=== PATIENT | female | born 1985 | race Caucasian/White ===

== ENCOUNTER 2021-05-27 13:11 | Outpatient (CLI) | payer MEDICARE, MEDICAID, SELFPAY ==
--- NOTE | ~2021-05-27 | XR_ITS ---
EXAMINATION: XR lumbar spine 2-3V EXAM DATE: 05/27/2021 13:32 INDICATION: Low back pain. TECHNIQUE: Lumber spine frontal, lateral, lateral L5-S1 projections for interpretation. Comparison is made to prior examination from 05/04/2015. FINDINGS: There is moderate disc disease at L5-S1, mild at the other lumbar levels with height maint ained. There is mild lumbar facet arthropathy. The vertebral bodies are aligned in the AP dimension. Sacrum, sacroiliac joints, sacral arcuate lines are intact. Paraspinal soft tissue is unremarkable. IMPRESSION: L5-S1 moderate disc disease. Otherwise mild lumbar spondylosis. Reviewed, dictated and finalized at location A. NICAL SALES DIRECTOR
== END 2021-05-27 13:12 | disposition home or self-care (01) ==
LOC: ANHLAB 13:15
PROVIDERS: PCP Nurse Practitioner Family; Visit Provider Internal Medicine
DX: M51.37 Other intervertebral disc degeneration, lumbosacral region (principal); M47.896 Other spondylosis, lumbar region
CPT/HCPCS: 72100

== ENCOUNTER 2021-10-22 13:01 | Outpatient (CLI) | payer OTHER, SELFPAY ==
--- NOTE | ~2021-10-22 | XR_ITS ---
EXAMINATION: XR lumbar spine 2-3V DATE: 10/22/2021 13:26 INDICATION: Low back pain. TECHNIQUE: 3 views of lumbar spine were obtained. COMPARISON: Lumbar spine radiographs 05/27/2021 FINDINGS: Bone alignment is normal. Vertebral body heights are normal. There is moderately decreased disc height at L5-S1. There are endplate osteophytes at most levels. There is multilevel mild facet j oint osteoarthritis. IMPRESSION: 1. Moderate lower lumbar spondylosis. Reviewed, dictated and finalized at location A.
== END 2021-10-22 13:02 | disposition home or self-care (01) ==
LOC: ANHIMG 13:09
DX: M47.896 Other spondylosis, lumbar region (principal)
CPT/HCPCS: 72100

== ENCOUNTER 2021-11-15 20:35 | Emergency (ER) | payer OTHER, SELFPAY ==
[2021-11-15 20:41] VITALS: BP 118/64; PULSE 109; RESP 20; TEMP 36.3; O2SAT 99
--- NOTE | 2021-11-15 21:08 | PC.NURSE ---
pt left at this time stating we'll just come back another time, I can't wait anymore and my daughter is getting antzy.
== END 2021-11-15 21:10 | disposition left against medical advice (07) ==
DX: R68.84 Jaw pain (principal)
CPT/HCPCS: 99199

== ENCOUNTER 2021-11-16 11:31 | Emergency (ER) | payer OTHER, SELFPAY ==
[2021-11-16 11:34] VITALS: BP 113/50; PULSE 104; RESP 16; TEMP 36.7; O2SAT 99
--- NOTE | 2021-11-16 12:40 | ED.DENTAL ---
HPI - Dental/Oral General Chief complaint: Dental/Oral <ALMITA Mazariegos Last Filed: 11/16/21 13:46> Stated complaint: dental pain <ALMITA Mazariegos Last Filed: 11/16/21 13:46> Time Seen by Provider: 11/16/21 11:45 <ALMITA Mazariegos Last Filed: 11/16/21 13:46> Source: patient <ALMITA Mazariegos Last Filed: 11/16/21 13:46> Mode of arrival: ambulatory <ALMITA Mazariegos Last Filed: 11/16/21 13:46> Limitations: no limitations <ALMITA Mazariegos Last Filed: 11/16/21 13:46> History of Present Illness HPI Narrative: This is a 36 year old female that presents to the ER for dental pain. Ongoing over the last week. Reports she recently had a tooth extracted in the area. Reports since she has had worsening pain and swelling in the area. She has also noted some abnormal drainage of the area the last 2 days. Denies fever. <ALMITA Mazariegos Last Filed: 11/16/21 13:46> MD Complaint: tooth pain <ALMITA Mazariegos Last Filed: 11/16/21 13:46> Location: Tooth # (31) <ALMITA Mazariegos Last Filed: 11/16/21 13:46> Related Data Home medications: Home Medications Medication Instructions Recorded Confirmed bupropion HCl mg PO 11/15/21 olanzapine mg 11/15/21 <ALMITA Mazariegos Last Filed: 11/16/21 13:46> Allergies/adverse reactions: Allergies Allergy/AdvReac Type Severity Reaction Status Date / Time No Known Allergies Allergy Verified 11/16/21 11:40 <ALMITA Mazariegos Last Filed: 11/16/21 13:46> Review of Systems Review of Systems: CONSTITUTIONAL: Denies fever ENT: Reports dentalgia RESPIRATORY: Denies dyspnea. <ALMITA Mazariegos Last Filed: 11/16/21 13:46> All systems reviewed & are unremarkable except as noted in HPI and below <Charisse Avalos PA-C - Last Filed: 11/16/21 13:46> [facility] Past Medical History Medical History: Medical History (Updated 11/16/21 @ 13:44 by Charisse Avalos PA-C) Allergies Anxiety Bipolar disorder Encounter to establish care Low back pain Tobacco abuse <Charisse vAalos PA-C - Last Filed: 11/16/21 13:46> Family History Family History: Family History (Updated 03/07/21 @ 13:41 by Rex Robles [facility]) Mother Family history of malignant neoplasm Lung cancer Grandparent Cervical cancer <Charisse Avalos PA-C - Last Filed: 11/16/21 13:46> Social History Social History: Social History (Updated 03/07/21 @ 13:41 by Rex Robles [facility]) Smoking packs per day: 1 Smoking cigarettes per day: 20.0 Years smoked: 18 Smoking pack-years: 18.00 Smoking status: Current every day smoker Tobacco type: cigarettes Alcohol intake: current Substance use: never <Charisse Avalos PA-C - Last Filed: 11/16/21 13:46> Exam Narrative: GENERAL: Well-appearing, well-nourished, and in no acute distress. HEAD: Normocephalic, atraumatic. EYES: EOMI. ENT: Mucous membranes moist. Oropharynx without tonsillar hypertrophy exudate or other lesions. Floor of mouth is soft. No trismus. Area of extraction of tooth #31 with edema and erythema NECK: Supple. Right submandibular tender adenopathy CHEST: Clear to auscultation. No respiratory distress. No wheezes rales or rhonchi HEART: Regular rate and rhythm. No murmur heard. Normal peripheral pulses. EXTREMITIES: Normal range of motion. No edema. SKIN: Warm, dry, no rash. NEURO: No focal deficits. Alert and oriented x3. PSYCH: Normal mood and affect <Charisse Avalos PA-C - Last Filed: 11/16/21 13:46> Course [employer] SALES REPRESENTATIVE/PA Physician Supervision For this patient encounter, I reviewed the ELECT[employer] SALES REPRESENTATIVE or PA documentation, treatment plan, and medical decision making; and I had [id number] time with this patient. <Ignacio De Santiago MD - Last Filed: 11/16/21 15:58> Vital Signs Vital signs: Vital Signs Temperature 98.0 F 11/16/21 11:34 Pulse Rate 104 H 11/16/21 11:34 Respiratory R
[2021-11-16] MEDS: AMPICILLIN SULB 3 GM/NS 100 ML 3 GM/100 ML VIAL IVPB (12:41)
[2021-11-16 13:01] LABS: Basophils Percent Auto 0.3 % (0.2-1.2); Eosinophils Absolute Auto 0.1 K/mm3 (0-0.3); Eosinophils Percent Auto 1.3 % (0-4.4); Hemoglobin 12.4 g/dL (12.0-15.0); Immature Granulocyte Absolute 0.02 K/mm3 (0.00-0.031); Immature Granulocyte Percent A 0.3 % (0-0.5); Lymphocytes Absolute Auto 1.85 K/mm3 (0.9-3.2); Lymphocytes Percent Auto 23.7 % (18.3-44.2); Mean Corpuscular HGB Conc 33.5 g/dl (32-36); Mean Corpuscular Hemoglobin 32.5 pg (26-34); Mean Corpuscular Volume 97.1 fl (80-100); Mean Platelet Volume 10.8 fl (7.4-10.4); Monocytes Absolute Auto 0.5 K/mm3 (0.1-0.6); Monocytes Percent Auto 6.3 % (2.6-8.5); Neutrophils Absolute Auto 5.3 K/mm3 (1.3-6.7); Neutrophils Percent Auto 68.1 % (45.5-73.1); Platelet Count Result 264 k/mm3 (150-375); Red Blood Count 3.81 M/mm3 (4.2-5.4); Red Cell Distribution Width 12.2 % (11.5-14.5); White Blood Count 7.8 K/mm3 (4.5-10.0)
[2021-11-16 13:14] LABS: Anion Gap 5 mmol/L (8-16); Blood Urea Nitrogen 7 mg/dL (7-17); CRP < 0.5 mg/dL (<1.0); Calcium 8.7 mg/dL (8.4-10.2); Carbon Dioxide 27 mmol/L (22-30); Chloride 107 mmol/L (98-107); Estimated CRCL calculation 81 ml/min; Estimated Glomerular Filt Rate > 60; Glucose 91 mg/dL (65-110); Potassium 3.9 mmol/L (3.4-5.0); Sodium 139 mmol/L (137-145)
[2021-11-16 13:19] VITALS: TEMP 36.7
[2021-11-16] MEDS: BENZOCAINE/TETRACAINE SPRAY (*SP) 56 ML AEROSOL 1 SPRAY MUCOUS MEM (13:38)
[2021-11-16 13:44] LABS: Erythrocyte Sedimentation Rate 23 mm/hr (0-20)
== END 2021-11-16 13:58 | disposition home or self-care (01) ==
PROVIDERS: Physician Assistant; Emergency Provider Emergency Medicine
DX: K08.89 Other specified disorders of teeth and supporting structures (principal); F31.9 Bipolar disorder, unspecified; F41.9 Anxiety disorder, unspecified; F17.210 Nicotine dependence, cigarettes, uncomplicated; Z98.818 Other dental procedure status
CPT/HCPCS: 36415; 41800; 80048; 85025; 85652; 86140; 96365; 99284; A9270; J0295

== ENCOUNTER 2022-09-12 07:50 | Observation (INO) | payer OTHER, SELFPAY ==
[2022-09-12] VITALS (7 sets, daily range): BP systolic 104–124; BP diastolic 58–71; PULSE 113–140; RESP 18–20; TEMP 37–38.6; O2SAT 96–100; BMI 22.0
--- NOTE | ~2022-09-12 | CT_ITS ---
EXAMINATION: CT abdomen pelvis w con DATE: 09/12/2022 09:33 INDICATION: Right lower quadrant pain. TECHNIQUE: Computed tomography (CT) of the abdomen and pelvis was performed with 100 cc Omnipaque 350 intravenous contrast. The dose-length product was 281.08 mGy-cm. Automated exposure control and iter ative reconstruction technique were employed. COMPARISON: CT dated 04/14/2014. FINDINGS: Heart size normal. No significant pleural or pericardial effusion. No significant vascular abnormality. There is right lower lobe airspace consolidation, consistent with pneumonia. Fatty infiltration of the liver. The spleen, pancreas, adrenal glands and kidneys are unremarkable. G allbladder is present. The appendix is normal. There is mild thickening of the ascending, transverse colon, consistent with colitis. Nonobstructive bowel gas pattern. No free air or free fluid. No signi ficant vascular abnormality. No lymphadenopathy. IMPRESSION: 1. Abnormal mucosal thickening of the ascending and transverse colon, suspicious for colitis, most li alfa infectious or inflammatory. 2: Right lower lobe airspace consolidation, compatible with pneumonia. Recommend follow-up CT chest in 2-3 months to ensure resolution. Reviewed, dictated and finalized at location B. PER [employer] IMPRESSION: 1. Abnormal mucosal thickening of the ascending and transverse colon, suspiciou s for colitis, most likely infectious or inflammatory. 2: Right lower lobe airspace consolidation, compatible with pneumonia. Recomme nd follow-up CT chest in 2-3 months to ensure resolution.
[2022-09-12 08:31] LABS: Basophils Absolute Auto 0.1 K/mm3 (0.0-0.1); Basophils Percent Auto 0.2 % (0.2-1.2); Hematocrit 38.5 % (37.0-47.0); Hemoglobin 12.9 g/dL (12.0-15.0); Immature Granulocyte Absolute 0.29 K/mm3 (0.00-0.031); Lymphocytes Absolute Auto 1.25 K/mm3 (0.9-3.2); Lymphocytes Percent Auto 4.2 % (18.3-44.2); Mean Corpuscular HGB Conc 33.5 g/dl (32-36); Mean Corpuscular Hemoglobin 31.6 pg (26-34); Mean Corpuscular Volume 94.4 fl (80-100); Monocytes Absolute Auto 3.2 K/mm3 (0.1-0.6); Monocytes Percent Auto 10.9 % (2.6-8.5); Neutrophils Absolute Auto 24.7 K/mm3 (1.3-6.7); Neutrophils Percent Auto 83.7 % (45.5-73.1); Platelet Count Result 248 k/mm3 (150-375); Red Blood Count 4.08 M/mm3 (4.2-5.4); Red Cell Distribution Width 12.7 % (11.5-14.5); White Blood Count 29.5 K/mm3 (4.5-10.0)
--- NOTE | 2022-09-12 08:33 | PC.NURSE ---
Pt drinking soda on arrival to ed. Pt advised to not eat or drink anything until seen by erp.
[2022-09-12 08:35] LABS: Appearance Urine Slightly Cloudy (Clear); Bilirubin Urine 1+ (Negative); Blood Urine 3+ (Negative); Color Urine Yellow (Yellow); Glucose Urine UA Negative (Negative); Ketones Urine Negative (Negative); Leukocyte Esterase Ur Negative LEU/UL (Negative); Nitrate Urine Negative (Negative); Protein Urine 2+ mg/dL (Negative); Urobilinogen Urine 0.2 mg/dL (<2.0)
[2022-09-12 08:39] LABS: Hyaline Casts Urine 20-29 /lpf; Mucus Urine Rare /lpf; RBC Urine 51-75 /hpf (0-2); Squamous Epithelial Cell Urine Occasional /hpf (Few); Transitional Epi Cells Urine Rare /hpf (None Seen)
[2022-09-12 08:45] LABS: Alanine Aminotransferase 14 U/L (6-35); Albumin Level 4.6 g/dL (3.5-5.1); Alkaline Phosphatase 73 U/L (38-126); Anion Gap 12 mmol/L (8-16); Aspartate Amino Transferase 19 U/L (14-36); Bilirubin,Total 0.5 mg/dL (0.2-1.3); Blood Urea Nitrogen 7 mg/dL (7-17); Calcium 9.2 mg/dL (8.4-10.2); Carbon Dioxide 21 mmol/L (22-30); Chloride 100 mmol/L (98-107); Estimated CRCL calculation 91 ml/min; Estimated Glomerular Filt Rate > 60; Glucose 131 mg/dL (65-110); Lipase 24 U/L (23-300); Potassium 3.7 mmol/L (3.4-5.0); Sodium 133 mmol/L (137-145)
[2022-09-12 08:57] LABS: Add Urine Microscopic? YES
[2022-09-12] MEDS: MORPHINE SULFATE (*CRX) 4 MG/ML INJ IV PUSH ×2 (09:50→11:02)
[2022-09-12] MEDS: SODIUM CHLORIDE 0.9% IV 1,000 ML 999 ML IV CONT ×2 (09:50→11:03)
--- NOTE | 2022-09-12 10:38 | ED.GENADULT ---
HPI - General Adult General Chief complaint: Abdominal Pain Stated complaint: abd pain Time Seen by Provider: 09/12/22 08:23 History of Present Illness HPI narrative: Patient is a 37-year-old female who presents ER with abdominal pain worsening over the last few days. Had a bowel movement today but pain persist. Right lower quadrant. Some mild nausea. Found to be febrile when she arrived here. She does still have an appendix. No urinary frequency urgency or dysuria. Denies flank pain. No runny nose or sore throat or productive cough. Related Data Home Medications Medication Instructions Recorded Confirmed bupropion HCl 300 mg 24 hr tablet, 300 mg PO QHS 11/15/21 09/12/22 extended release olanzapine 20 mg tablet 20 mg PO QHS 11/15/21 09/12/22 hydrocodone 5 mg-acetaminophen 325 1 tablet PO Q8H 09/12/22 09/12/22 mg tablet Allergies Allergy/AdvReac Type Severity Reaction Status Date / Time No Known Allergies Allergy Verified 11/16/21 11:40 Review of Systems Review of Systems: All systems reviewed & are unremarkable except as noted in HPI and below Constitutional: Constitutional: Reports chills, Reports fatigue and Reports fever(s) ENT: Denies nasal congestion and Denies sore throat Cardiovascular: Cardiovascular: Denies chest pain, Denies rapid heart rate and Denies radiating jaw, neck or arm pain Respiratory: Respiratory: Denies cough and Denies dyspnea Gastrointestinal: Gastrointestinal: Reports abdominal pain, Reports constipation, Reports nausea and Denies vomiting Genitourinary: Genitourinary: Denies nocturia and Denies dysuria [facility] Past Medical History Medical History (Updated 09/12/22 @ 19:22 by Francois Jose MD) Allergies Anxiety Bipolar disorder Tobacco abuse Family History Family History Mother Family history of malignant neoplasm Lung cancer Grandparent Cervical cancer Social History Social History (Updated 09/12/22 @ 12:59 by Kathryn Munoz PA-C) Social History: Surrogate medical decision maker: Karen Robledolbert, sister. Code status: Full code. Smoking packs per day: 1 Smoking cigarettes per day: 20.0 Years smoked: 18 Smoking pack-years: 18.00 Smoking status: Current every day smoker Tobacco type: cigarettes Alcohol intake: current Drinks per week: 0 Substance use: never Lack of Transportation: No Lack of Food: Never True Current Housing: I Have Housing Concerned About Future Housing: No Difficulty Paying Gas/Electric Bills: No Difficulty Paying for Meds: No Currently Unemployed: No Education: High School Diploma/GED Difficulty w/ Childcare or Family Care: No Additional occupation/education comments: Disabled. Spiritual care concerns: No Exam Narrative: GENERAL: Uncomfortable-appearing, well-nourished, and in no acute distress. HEAD: Normocephalic, atraumatic. ENT: Mucous membranes moist. CHEST: Clear to auscultation. No respiratory distress. HEART: Tachycardic and regular. Normal peripheral pulses. ABDOMEN: Soft, TTP RLQ w/o guarding, nondistended. EXTREMITIES: Normal range of motion. No edema. SKIN: Warm, dry, no rash. NEURO: Alert and oriented x3. PSYCH: Normal mood and affect. Course Course Emergency Course: Patient informed of results. Discussed need for admission. Patient denies any respiratory symptoms but has significant pneumonia. She also has elevated heart rate with elevated white blood cell count and fever. Patient will be started on IV antibiotics for pneumonia. Vital Signs Vital signs: Vital Signs Temperature 101.4 F H 09/12/22 08:07 Pulse Rate 140 H 09/12/22 08:07 Respiratory Rate 18 09/12/22 08:07 Blood Pressure 118/71 09/12/22 08:07 Pulse Oximetry 100 09/12/22 08:07 Oxygen Delivery Room Air 09/12/22 08:07 Temperature 98.6 F 09/12/22 13:41 Pulse Rate 113 H 09/12/22 11:55 Respiratory Rate 18
[2022-09-12 10:59] LABS: Influenza A QL RT-PCR Negative (Negative); Influenza B QL RT-PCR Negative (Negative); SARS-CoV-2 RNA PCR Negative
[2022-09-12 11:06] LABS: Lactic Acid Reflex 0.7 mmol/L (0.7-2.0)
[2022-09-12] MEDS: HYDROcodone/acetaminophen (*CRX) 5-325 MG TABLET 1 TAB PO ×2 (12:15→21:55)
[2022-09-12] MEDS: ACETAMINOPHEN 325 MG TABLET 650 MG PO ×2 (12:41→16:37)
--- NOTE | 2022-09-12 12:44 | ADMGEN ---
This patient, Cristiane Ivan, was admitted to Medical Room 248-. Patient/family oriented to hospital policies and general routines including ID bracelet, bed and alarms, visiting hours, pain management, procedures, bathroom and other care routines, personal items, smoking policy, room service/diet, and visiting hours. Information on how to activate the Rapid Response Team has been discussed. Patient/Family are encouraged to report perceived risks to care and to ask questions if they do not understand what they are told or what they should do.
--- NOTE | 2022-09-12 12:55 | PM.IMHP ---
H&P: HPI History of Present Illness Date/Time: 09/12/22 12:55 Chief Complaint: Abdominal pain. Narrative: This is a 37-year-old female smoker with anxiety and bipolar disorder who presented to the emergency department from home for evaluation of abdominal pain. Patient provides the following history. She endorses nonradiating, cramping right lower quadrant abdominal pain that has been going on for approximately 2 to 3 days. She has thus far attributed the pain to constipation and she has been taking laxatives without relief. Today she finally had a loose stool (nonbloody) after taking another laxative. She has also had a bit of a nonproductive cough but nothing significant. 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 She denies recent travel and antibiotic use. Today she felt warm and she was febrile on arrival (101.4?). Pertinent labs include a WBC of 29.5, sodium 133, creatinine 0.70, lipase 24, normal LFTs. CT of the abdomen/pelvis showed abnormal mucosal thickening of the ascending and transverse colon suspicious for colitis. Also noted was a right lower lobe airspace consolidation consistent with pneumonia. COVID and influenza negative. Review of Systems Review of Systems: Twelve systems were reviewed and are negative except for as per HPI. [facility] Past Medical History Medical History Allergies Anxiety Bipolar disorder Tobacco abuse Surgical History Surgical History (Updated 09/12/22 @ 21:07 by Kathryn Munoz PA-C) No history of previous surgery Family History Family History Mother Family history of malignant neoplasm Lung cancer Grandparent Cervical cancer Social History Social History (Updated 09/12/22 @ 21:07 by Kathryn Munoz PA-C) Social History: Surrogate medical decision maker: Karen Sarita, . Code status: Full code. Smoking packs per day: 1 Smoking cigarettes per day: 20.0 Years smoked: 18 Smoking pack-years: 18.00 Smoking status: Current every day smoker Tobacco type: cigarettes Alcohol intake: current Drinks per week: 0 Substance use: never Lack of Transportation: No Lack of Food: Never True Current Housing: I Have Housing Concerned About Future Housing: No Difficulty Paying Gas/Electric Bills: No Difficulty Paying for Meds: No Currently Unemployed: No Education: High School Diploma/GED Difficulty w/ Childcare or Family Care: No Additional living arrangements comments: Lives in [place] with 5-year-old daughter. 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 Spiritual care concerns: No Meds Home Medications and Allergies Home Medications Medication Instructions Recorded Confirmed Type bupropion HCl 300 mg 24 hr tablet, 300 mg PO QHS 11/15/21 09/12/22 History extended release olanzapine 20 mg tablet 20 mg PO QHS 11/15/21 09/12/22 History hydrocodone 5 mg-acetaminophen 325 1 tablet PO Q8H 09/12/22 09/12/22 History mg tablet Allergies Allergy/AdvReac Type Severity Reaction Status Date / Time No Known Allergies Allergy Verified 11/16/21 11:40 Vital Signs Vital Signs - 24 hr 09/12/22 08:07 09/12/22 10:59 09/12/22 11:55 Temperature 101.4 F H 101.5 F H Pulse Rate 140 H 134 H 113 H Respiratory Rate 18 18 Blood Pressure 118/71 115/65 124/64 Pulse Oximetry 100 98 99 Oxygen Delivery Room Air 09/12/22 12:41 Temperature 101.5 F H Pulse Rate Respiratory Rate Blood Pressure Pulse Oximetry Oxygen Delivery Exam Narrative: General: A well-developed, nontoxic-appearing female in the supine position in no distress. BMI: 22.0. HEENT: PERRL, EOMI. Sclera anicteric. Tacky mucous membranes. Neck: Supple. Respiratory: Lungs are clear to auscult
[2022-09-12] MEDS: LACTATED RINGERS 1,000 ML 75 ML IV CONT (14:38)
[2022-09-12] MEDS: metroNIDAZOLE 500 MG/ISO 100ML 500 MG/100 ML BAG 100 MG IVPB ×2 (15:48→21:54)
[2022-09-12] MEDS: OLANZapine 5 MG TABLET 20 MG PO (21:56)
[2022-09-12] MEDS: buPROPion HCL XL (24 HR) 150 MG TABCR 300 MG PO (21:56)
[2022-09-13] MEDS: HYDROcodone/acetaminophen (*CRX) 5-325 MG TABLET 1 TAB PO ×2 (04:38→12:52)
[2022-09-13 05:36] LABS: Hematocrit 31.7 % (37.0-47.0); Hemoglobin 10.6 g/dL (12.0-15.0); Mean Corpuscular HGB Conc 33.4 g/dl (32-36); Mean Corpuscular Hemoglobin 31.5 pg (26-34); Mean Corpuscular Volume 94.3 fl (80-100); Mean Platelet Volume 11.7 fl (7.4-10.4); Platelet Count Result 217 k/mm3 (150-375); Red Blood Count 3.36 M/mm3 (4.2-5.4); Red Cell Distribution Width 12.6 % (11.5-14.5); White Blood Count 22.1 K/mm3 (4.5-10.0)
[2022-09-13 05:44] LABS: Alanine Aminotransferase 10 U/L (6-35); Albumin Level 3.4 g/dL (3.5-5.1); Alkaline Phosphatase 76 U/L (38-126); Anion Gap 5 mmol/L (8-16); Aspartate Amino Transferase 15 U/L (14-36); Bilirubin,Total 0.3 mg/dL (0.2-1.3); Blood Urea Nitrogen 7 mg/dL (7-17); Calcium 8.2 mg/dL (8.4-10.2); Carbon Dioxide 27 mmol/L (22-30); Chloride 106 mmol/L (98-107); Estimated CRCL calculation 105 ml/min; Estimated Glomerular Filt Rate > 60; Glucose 97 mg/dL (65-110); Magnesium 2.1 mg/dL (1.6-2.3); Potassium 3.5 mmol/L (3.4-5.0); Sodium 138 mmol/L (137-145)
[2022-09-13] MEDS: metroNIDAZOLE 500 MG/ISO 100ML 500 MG/100 ML BAG 100 MG IVPB ×3 (05:59→21:56)
[2022-09-13 06:00] VITALS: BP 106/53; PULSE 115; RESP 16; TEMP 36.5; O2SAT 100
[2022-09-13] MEDS: LACTATED RINGERS 1,000 ML 75 ML IV CONT ×2 (06:01→21:57)
--- NOTE | 2022-09-13 09:06 | PM.IMPN ---
Progress Note: A&P Assessment and Plan (1) Sepsis: Qualifiers: Sepsis type: sepsis due to unspecified organism Sepsis acute organ dysfunction status: without acute organ dysfunction Qualified Code(s): A41.9 - Sepsis, unspecified organism Code(s): A41.9 - Sepsis, unspecified organism Status: Acute Assessment and Plan: Patient presented with temp 101.4F, HR 140, BP 118/71, WBC [address] scan showing colitis and RLL pneumonia. Continue IV antibiotics Monitor hemodynamics. IV fluid resuscitated in the ED and continued on admission. (2) Colitis: Code(s): K52.9 - Noninfective gastroenteritis and colitis, unspecified Status: Acute Assessment and Plan: CT shows mucosal thickening of the ascending and transverse colon suspicious for colitis which is likely infectious in nature given sepsis picture (fever, leukocytosis). She has never had similar symptoms and has no personal or family history of inflammatory bowel disease. Continue IV Rocephin and metronidazole x 7-10 days. Low residue diet. Stool studies pending. Continue IV fluid rehydration WBC 22, down from 29 on admission. Trend CBC Monitor electrolytes and replace as needed. (3) Right lower lobe pneumonia: Qualifiers: Pneumonia type: due to unspecified organism Qualified Code(s): J18.9 - Pneumonia, unspecified organism Code(s): J18.9 - Pneumonia, unspecified organism Status: Acute Assessment and Plan: CT also shows a right lower lobe pneumonia. Continue azithromycin, ceftriaxone, Attempt sputum for culture urinary antigens pending. Radiologist recommends follow-up chest CT in 2 to 3 months to ensure resolution of the right lower lobe consolidation. Given tobacco use, recommend PCV 20 immunization and annual influenza. (4) Bipolar disorder: Qualifiers: Active/Remission status: remission status unspecified Qualified Code(s): F31.9 - Bipolar disorder, unspecified Code(s): F31.9 - Bipolar disorder, unspecified Status: Chronic Assessment and Plan: Continue olanzapine and bupropion (5) Anxiety: Code(s): F41.9 - Anxiety disorder, unspecified Status: Chronic Assessment and Plan: As above. (6) Tobacco abuse: Code(s): Z72.0 - Tobacco use Status: Chronic Assessment and Plan: Counseled to quit smoking. Plan CODE STATUS: FULL CODE Disposition: from home. Discharge in 1-2 days when symptoms improved. Time Spent With Patient Time: 35 minutes time spent reviewing nursing and specialist documentation, labs, vitals, and patient assessment.?All questions answered to the best of my ability. Subjective Date/time seen: 09/13/22 09:06 Patient is a 37-year-old female smoker with anxiety and bipolar disorder who presented to the emergency department from home for evaluation of abdominal pain for 2-3 days and nonproductive cough. CT scan showed RLL consolidation and ascending and transverse colon colitis. She reports feeling better today. She is eating some and tolerating diet. She had one loose stool and stool studies were sent. She still had tachycardia this morning, but stable blood pressure. She has a cough, but no sputum. She denies SOB, chest pain, palpitations, chills or rigors. She had a hot sensation this morning, but no fever. Review of Systems Review of Systems: All systems reviewed & are unremarkable except as noted in HPI and below Exam Narrative: General: well-developed, nontoxic-appearing female in the supine position in no distress. HEENT: Normocephalic. PERRL, EOMI. Sclera anicteric. Moist mucous membranes. Neck: Supple without lymphadenopathy. Respiratory: Respirations regular and unlabored. Lungs with diminished RLL, but all other lung moy are clear to auscultation bilaterally. No intercostal muscle use. Cardiovascular: Regular rate and rhythm with S1-S2. No murmurs, gallops or
[2022-09-13 14:00] VITALS: BP 114/66; PULSE 95; RESP 14; TEMP 36.7; O2SAT 100
[2022-09-13] MEDS: FLUTICASONE PROPIONATE 0.05% NA SPR 16 GM BTL (*BKC) 2 SPRAY NASAL (14:18)
[2022-09-13] MEDS: OLANZapine 5 MG TABLET 20 MG PO (20:10)
[2022-09-13] MEDS: buPROPion HCL XL (24 HR) 150 MG TABCR 300 MG PO (20:10)
[2022-09-13] MEDS: ACETAMINOPHEN 325 MG TABLET 650 MG PO (20:11)
[2022-09-13 21:29] VITALS: BP 125/64; PULSE 95; RESP 20; TEMP 36.8; O2SAT 100
[2022-09-14 05:16] LABS: Basophils Percent Auto 0.2 % (0.2-1.2); Eosinophils Absolute Auto 0.1 K/mm3 (0-0.3); Eosinophils Percent Auto 0.6 % (0-4.4); Hemoglobin 10.7 g/dL (12.0-15.0); Immature Granulocyte Absolute 0.05 K/mm3 (0.00-0.031); Immature Granulocyte Percent A 0.5 % (0-0.5); Lymphocytes Absolute Auto 1.51 K/mm3 (0.9-3.2); Mean Corpuscular HGB Conc 33.4 g/dl (32-36); Mean Corpuscular Hemoglobin 32.1 pg (26-34); Mean Corpuscular Volume 96.1 fl (80-100); Mean Platelet Volume 11.3 fl (7.4-10.4); Monocytes Absolute Auto 0.7 K/mm3 (0.1-0.6); Monocytes Percent Auto 6.4 % (2.6-8.5); Neutrophils Absolute Auto 8.5 K/mm3 (1.3-6.7); Neutrophils Percent Auto 78.3 % (45.5-73.1); Platelet Count Result 256 k/mm3 (150-375); Red Blood Count 3.33 M/mm3 (4.2-5.4); White Blood Count 10.8 K/mm3 (4.5-10.0)
[2022-09-14 05:24] LABS: Anion Gap 7 mmol/L (8-16); Blood Urea Nitrogen 7 mg/dL (7-17); Calcium 8.9 mg/dL (8.4-10.2); Carbon Dioxide 26 mmol/L (22-30); Chloride 106 mmol/L (98-107); Estimated CRCL calculation 105 ml/min; Estimated Glomerular Filt Rate > 60; Glucose 92 mg/dL (65-110); Magnesium 2.1 mg/dL (1.6-2.3); Potassium 3.5 mmol/L (3.4-5.0); Sodium 139 mmol/L (137-145)
[2022-09-14 05:41] VITALS: BP 142/65; PULSE 70; RESP 16; TEMP 36.4; O2SAT 97
[2022-09-14] MEDS: metroNIDAZOLE 500 MG/ISO 100ML 500 MG/100 ML BAG 100 MG IVPB (06:13)
[2022-09-14 06:17] VITALS: BP 113/56
--- NOTE | 2022-09-14 08:21 | PM.DS ---
DS: Admitting Diagnosis Discharge Date 09/14/2022 Admitting Diagnosis Sepsis, unspecified organism Noninfective gastroenteritis and colitis, unspecified Right lower lobe pneumonia Bipolar disorder, chronic Anxiety Tobacco abuse DS: Discharge Diagnosis Discharge Diagnosis (1) Sepsis: Qualifiers: Sepsis acute organ dysfunction status: without acute organ dysfunction Sepsis type: sepsis due to unspecified organism Qualified Code(s): A41.9 - Sepsis, unspecified organism Code(s): A41.9 - Sepsis, unspecified organism Status: Acute Assessment and Plan: Patient presented with temp 101.4F, HR 140, BP 118/71, WBC [address] scan showing colitis and RLL pneumonia. Continue IV antibiotics give for colitis and pneumonia Monitored hemodynamics. IV fluid resuscitated in the ED and continued on admission. (2) Colitis: Code(s): K52.9 - Noninfective gastroenteritis and colitis, unspecified Status: Acute Assessment and Plan: CT shows mucosal thickening of the ascending and transverse colon suspicious for colitis which is likely infectious in nature given sepsis picture (fever, leukocytosis). She has never had similar symptoms and has no personal or family history of inflammatory bowel disease. Treated with IV Rocephin and metronidazole, continued antibiotics at discharge for x 7-10 days. Low residue diet. Stool studies sent and pending at discharge Continue IV fluid rehydration WBC 10 at discharge, down from 29 on admission. Monitored CBC Monitor electrolytes and replace as needed. (3) Right lower lobe pneumonia: Qualifiers: Pneumonia type: due to unspecified organism Qualified Code(s): J18.9 - Pneumonia, unspecified organism Code(s): J18.9 - Pneumonia, unspecified organism Status: Acute Assessment and Plan: CT also shows a right lower lobe pneumonia. Continue azithromycin, ceftriaxone, Attempt sputum for culture urinary antigens negative Radiologist recommends follow-up chest CT in 2 to 3 months to ensure resolution of the right lower lobe consolidation. Given tobacco use, recommend PCV 20 immunization and annual influenza. Discussed with patient (4) Bipolar disorder: Qualifiers: Active/Remission status: remission status unspecified Qualified Code(s): F31.9 - Bipolar disorder, unspecified Code(s): F31.9 - Bipolar disorder, unspecified Status: Chronic Assessment and Plan: Continue olanzapine and bupropion (5) Anxiety: Code(s): F41.9 - Anxiety disorder, unspecified Status: Chronic Assessment and Plan: As above. (6) Tobacco abuse: Code(s): Z72.0 - Tobacco use Status: Chronic Assessment and Plan: Counseled to quit smoking. DS: Summary Hospital Course Reason for hospitalization: Abdominal pain Hospital Course: Cristiane Ivan is a 37-year-old female smoker with anxiety and bipolar disorder who presented to the emergency department from home for evaluation of abdominal pain for 2-3 days and nonproductive cough. CT scan showed RLL consolidation and ascending and transverse colon colitis. She was admitted to the medical floor for IV antibiotics and supportive care. She was treated with IV hydration and IV Rocephin 1 gram Q24 hours, IV Azithromycin 500 mg Q24 hours and IV Flagyl 500 mg Q8 hours for pneumonia and colitis. She improved clinically. No diarrhea, dizziness, N/V, abdominal bloating, dyspepsia, chest pain, SOB, SEALS, palpitations or dizziness. Abdominal pain resolved and she was tolerating diet. Diet was advanced to low fiber with good tolerance. She was discharged home hemodynamically stable on Levaquin 750 mg PO Q24 hours for pneumonia and colitis, as well as Metronidazole PO 500 mg PO Q8 hours for an additional 5 days, for total 7-day antibiotic course. She was counseled on diet, quitting smoking and immunizations. Time spent discussing smoking cessation with
[2022-09-14] MEDS: FLUTICASONE PROPIONATE 0.05% NA SPR 16 GM BTL (*BKC) 2 SPRAY NASAL (09:30)
[2022-09-14] MEDS: levoFLOXacin 750 MG TABLET PO (09:31)
[2022-09-15 16:51] LABS: Pneumococcal Antigen Urine Not Detected (Not Detected)
[2022-09-16 03:53] LABS: Legionella pneumophila Ag Ur Not Detected (Not Detected)
[2022-09-16 20:42] LABS: Mycoplasma IgM Antibody Titer 409 U/mL (<770)
== END 2022-09-14 10:12 | disposition home or self-care (01) ==
LOC: ANHED 08:46 → ANH2MED 12:08
PROVIDERS: Nurse Practitioner Family; Physician Assistant; Admitting Provider Chiropractor; Emergency Provider Emergency Medicine; PCP Internal Medicine Gastroenterology; Visit Provider Student in an Organized Health Care Education/Training Program
DX: A41.9 Sepsis, unspecified organism (principal); K52.9 Noninfective gastroenteritis and colitis, unspecified; J18.9 Pneumonia, unspecified organism; F41.9 Anxiety disorder, unspecified; F31.9 Bipolar disorder, unspecified; Z20.822 Contact with and (suspected) exposure to COVID-19; F10.90 Alcohol use, unspecified, uncomplicated; F17.210 Nicotine dependence, cigarettes, uncomplicated; Z79.891 Long term (current) use of opiate analgesic; Z79.899 Other long term (current) drug therapy
CPT/HCPCS: 36415; 74177; 80048; 80053; 81001; 81025; 83605; 83690; 83735; 85025; 85027; 86738; 87040; 87045; 87070; 87205; 87269; 87272; 87427; 87449; 87636; 87899; 96361; 96365; 96366; 96367; 96375; 96376; 99285; A9270; G0378; G0379; J0456; J0696; J2270; J7030; J7120; Q9967

== ENCOUNTER 2022-10-09 12:36 | Outpatient (CLI) | payer OTHER, SELFPAY ==
--- NOTE | ~2022-10-09 | XR_ITS ---
EXAMINATION: XR chest 2V DATE: 10/09/2022 13:05 INDICATION: Pneumonia follow-up TECHNIQUE: PA and lateral views of the chest are obtained. COMPARISON: CT, 09/12/2022 FINDINGS: The previously described right lower lobe airspace opacities have resolved. The lungs are f ree of acute opacities. No pleural effusion or pneumothorax. The cardiomediastinal silhouette is norm al. The visualized bones and soft tissues are unremarkable. IMPRESSION: 1. No acute cardiopulmonary abnormality. Reviewed, dictated and finalized at location F.
== END 2022-10-09 12:37 | disposition home or self-care (01) ==
LOC: ANHIMG 12:52
PROVIDERS: PCP Internal Medicine Gastroenterology; Visit Provider Family Medicine
DX: J18.9 Pneumonia, unspecified organism (principal)
CPT/HCPCS: 71046

== ENCOUNTER 2023-10-21 09:29 | Outpatient (CLI) | payer MEDICARE, MEDICAID, SELFPAY ==
--- NOTE | ~2023-10-21 | CT_ITS ---
CT of the Abdomen and Pelvis: Indication: Microscopic hematuria Technique: 2.5 mm axial scans were obtained through the abdomen and pelvis prior to and following in travenous administration of 130 cc of Omnipaque 350. Dose reduction technique was used on this scan b y utilizing automated exposure control and iterative reconstruction technique. The dose-length produc t (DLP) was 783.40 mGy-cm. Findings: Scans through the lung bases are unremarkable. The liver, spleen, pancreas, gallbladder, adrenals and kidneys are within normal limits. No evidence of aortic aneurysm. No lymphadenopathy. No bowel obstruction or bowel wall thickening. There is no evidence to suggest acute appendicitis. Images through the pelvis were performed. Urinary bladder unremarkable. No pelvic mass seen. No ascit es. Impression: No significant abnormalities seen. No etiology for hematuria identified. Reviewed, dictated and finalized at [facility]. Impression: No significant abnormalities seen. No etiology for hematuria identified.
== END 2023-10-21 09:30 | disposition home or self-care (01) ==
PROVIDERS: PCP Internal Medicine Gastroenterology; Visit Provider Physician Assistant
DX: R31.29 Other microscopic hematuria (principal)
CPT/HCPCS: 74178; Q9967

== ENCOUNTER 2024-04-21 09:18 | Outpatient (CLI) | payer MEDICARE, MEDICAID, SELFPAY ==
--- NOTE | ~2024-04-21 | XR_ITS ---
Clinical Indication: Nicotine dependence PA and lateral views of the chest: Comparison: 10/09/2022 Findings: The lungs are clear, without evidence of focal consolidation or pleural effusion. Cardiome diastinal silhouette is within normal limits. Bones and soft tissues are unremarkable. Impression: Normal chest. Reviewed, dictated and finalized at location . Impression: Normal chest.
== END 2024-04-21 09:19 | disposition home or self-care (01) ==
PROVIDERS: PCP Family Medicine; Visit Provider Family Medicine
DX: F17.200 Nicotine dependence, unspecified, uncomplicated (principal)
CPT/HCPCS: 71046

== ENCOUNTER 2024-12-21 09:40 | Outpatient (CLI) | payer MEDICARE, MEDICAID, SELFPAY ==
--- NOTE | ~2024-12-21 | MM_ITS ---
Examination: MM screening [facility] [place] INDICATION: Asymptomatic, referred for screening mammogram COMPARISON: 11/09/2017 TECHNIQUE: Digital Breast Tomosynthesis CC, MLO views of Both breasts were obtained with computer-ai ded detection to assist in interpretation of the study. FINDINGS: The breasts are heterogeneously dense, which may obscure small masses. There is a superficial asymmetry seen on the cc view in the Medial right breast subareolar location. In addition, there is an asymmetry seen on the MLO view in the inferior, at posterior depth within th e right breast. No other focal dominant mass, architecture distortion, or suspicious microcalcifications identified. IMPRESSION: 1. Right breast asymmetries. 2. No evidence of malignancy in the Left breast. RECOMMENDATION: Right breast Diagnostic mammogram with true lateral, appropriate spot compression views and an ultras ound if needed. BI-RADS 0, INCOMPLETE, NEEDS ADDITIONAL IMAGING EVALUATION Reviewed, dictated and finalized at location B. IMPRESSION: 1. Right breast asymmetries. 2. No evidence of malignancy in the Left breast. RECOMMENDATION: Right breast Diagnostic mammogram with true lateral, appropriate spot compressi on views and an ultrasound if needed. BI-RADS 0, INCOMPLETE, NEEDS ADDITIONAL IMAGING EVALUATION
--- OUTSIDE RECORDS SUMMARY | 2024-12-21 09:51 | XMS_ITS | Continuity of Care Document ---
Author Organization [facility] Address [address] [place] [address] [place] [address] Phone Care Team Providers Care Interior Design Coordinator Name Role Phone Stephen Smith MD Unavailable Unavailable Allergies, Adverse Reactions, Alerts Substance Reaction Status Criticality No Known Allergies Active No Inform ation Medications Medication Instructions Dosage Effective Dates (start - stop) Status Comments [place] 10 mg-325 mg tablet take 1 tablet by oral route every 4 - 6 hours as needed for pain as needed - Active PRN for pain, avoid driving or operate machines Wellbutrin SR 100 mg tablet, 12 hr sustained-release take 1 tablet by oral route 2 times every day 100 MG - Active Zyprexa 2.5 mg tablet take 1 tablet by oral route every day 2.5 MG - Active Procedures Procedure Date PPPS, initial visit OFFICE/OUTPATIENT VISIT, [facility] Advance Directives Directive Yes / No Effective Date File Name No Information Encounters Encounter Description Practice Location Reason(s) For Visit Diagnoses Date Provider Providers Copied on Encounter OFFICE/OUTPAT IENT VISIT, NEW [facility], [address] [place], [id number], [place] tel:[phone] [facility] Medicine physical1 (chief complaint) Encounter for general adult medical exam w abnormal findingsChronic pain syndrome 9 [address]. [address] [facility] [place], [place], [id number] , [place]. tel:[phone] Referring Provider: Stephen Smith, [address] [facility] [place], [place], [id number]. tel:[phone] Family History Family Member Type Diagnosis Age At Onset Father Problem (finding) Alive and well Mother Problem (finding) of [place] of unknown o rigin 57 Brother Problem (finding) Alive and well Payers Payer name Insurance type Covered green party ID Authoriza tion(s) No Information Social History Type Description Quantity Date Captured Comments Alcohol Use Details No Caffeine Use Details Unknown Tobacco Use Status Moderate cigarette smoker (10-19 cigs/day) Smoking Status Heavy tobacco smoker Smoking Tobacco Use Details Cigarette: Age Started: 17, Years Used 15 Cigarette: 0.5 Packs per day, Pack Year: 8 Sex Female Vital Signs Date / Time: Height Weight BMI Pulse Rate Blood Pressure Temperature Respiratory Rate Body Surface Area Head Circumference BMI percentile Pulse Ox Inhaled Ox 4:34 PM 67.00 in 122.00 lbs 19.1 1 kg/m eter (2) 92 /min 116/69 mm[Hg] 98.4 F 16 /min Chief Complaint And Reason For Visit From encounter dated '07/22/2018 14:15'. physical1 (chief complaint). Description: Pt needs annual physical pt has chronic low back pain pt denies any worsening pain pt denies any loss of bladder control. Pt denies any sciatica or leg numbness. . Pt states that she supposes to see a pain management but she never got a referral from her previous PCP. Pt has pain for 5 years. Pt is getting opioid from her current PCP who is out of office and she has not been able to get her pain medication refilled. pt has 7/10 pain Pt has sharp pain. pt failed NSAID and ultram. Pt denies any other complaints Plan Of Treatment Date Type Action Status Goal Tobacco cessation counseling completed Referral Ordered: Pain Medicine (related to Chronic pain syndrome) ordered Referral Ordered: Referrals: Pain Medicine. Evaluate and treat ordered History Of Present Illness Encounter Date Complaint History Of Prese nt Illness physical1 Pt needs annual physical pt has chronic low back pain pt denies any worsening pain pt denies any loss of bladder control. Pt denies any sciatica or leg numbness. . Pt states that she supposes to see a pain management but she never got a referral from her previous PCP. Pt has pain for 5 years. Pt is getting opioid from her current PCP who is out of office and she has not been able to get her pain medication refilled. pt has 7/10 pain Pt has sharp pain. pt failed NSAID and ultram. Pt denies any other complaints Instructions Date Instruction Additional Infor mation No Information Assessments Type Assessment Date assessment Encounter for general adult [facility] exam w abnormal findings assessment Chronic pain syndrome 9 Mental Status Date Cognitive Assessment Orientation - [place] ed to time, place, person, situation.
--- OUTSIDE RECORDS SUMMARY | 2024-12-21 09:51 | XMS_ITS | Data Portability ---
Author Organization [facility], Main Office Address [address] [place] [address] Care Team Providers Care Forensic Chemist Name Role Phone JEFF ESCOBAR Primary Care Provider Assessment Encounter Date Assessment Date Assessment LastModified by Organization Details LastModified Time 04/28/2024 04/28/2024 39 yo F with - DENTAL CARRIES - HYPERCALCEMIA, resolved - MICROSCOPIC HEMATURIA, persistent - VIT B12 DEFICIENCY, improved - SEASONAL ALLERGIC RHINITIS - CHRONIC LOWER BACK PAIN - LUMBAR SPONDYLOSIS - BIPOLAR DISORDER - DEPRESSION - ANXEITY DISORDER - SMOKER CXR: 04/21/24. Annual labs: 04/18/24. Urine cytology, UA: 05/18/23. Annual labs: 03/25/23. CXR: 10/09/22. D/w pt in detail about her findings, recent labs & imagines and further plan of care. Meds as directed. Advised pt to talk with her Gyne about her Smoking and Estradiol tab. Risks explained. Diet and exercise explained in detail. Routine oral care explained in detail. Currently smoking about 0.25-0.5 ppd. Encouraged pt to quit smoking. Discussed in detail about different options to quit smoking including Chantix, Zyban, Nicotine patch, Nicotine gum/lozenges etc. Pt will let us know when he is ready for it. F/u with Oral surgeon/dentist as per schedule. Cont f/u with Uro as per schedule. Cont f/u with Psych and counsellor at [facility] as per schedule. Cont f/u with Gyne at [place] as per schedule. Cont f/u with Pain clinic at [place] as per schedule. HM: WWE - 02/09, normal as per pt. Cont f/u with Gyne as per schedule. Mammo - 2-3 yrs ago, normal per pt. Ordered. Flu - Pt declined. Tdap, Pneumo - Pt declined. F/u in 4-6 months. Annual labs in 04/13. Not available 04/28/2024 10:55:59 06/15/2024 06/15/2024 D/w pt about her findings and further plan of care. Explained about different options for her. Pt declined to do any work up at this time. Meds as directed. Good liquid and fiber intake explained. Educated pt about alarming symptoms to monitor at home and call us back or get checked in ED. Pt verbalized understanding it. F/u as directed. [email or web address] Not available 06/15/2024 17:54:14 06/29/2024 06/29/2024 D/w pt about her findings and further plan of care. Explained about different options for pt. Meds as directed. Will refer pt to Counsellor. Advised pt to call her Psychiatrist about her symptoms & concerns. Advised pt to talk with close friend/family member on a regular basis. Educated pt about alarming symptoms to monitor at home and call us back or get checked in ED in that case. Pt verbalized understanding it. F/u as directed. [email or web address] Not available 06/29/2024 16:42:08 08/29/2024 08/29/2024 39 yo F with - VIT B12 DEFICIENCY, improved - SEASONAL ALLERGIC RHINITIS - CHRONIC LOWER BACK PAIN - LUMBAR SPONDYLOSIS - MICROSCOPIC HEMATURIA, persistent - BIPOLAR DISORDER - DEPRESSION - ANXEITY DISORDER - DENTAL CARRIES - SMOKER - HYPERCALCEMIA, resolved CXR: 04/21/24. Annual labs: 04/18/24. Urine cytology, UA: 05/18/23. Annual labs: 03/25/23. CXR: 10/09/22. D/w pt in detail about her findings, recent labs & imagines and further plan of care. All meds verified with pt. Meds as directed. Advised pt to talk with her Gyne about her Smoking and Estradiol tab. Risks explained. Diet and exercise explained in detail. Routine oral care explained in detail. Currently smoking about 0.25-0.5 ppd. Encouraged pt to quit smoking. Discussed in detail about different options to quit smoking including Chantix, Zyban, Nicotine patch, Nicotine gum/lozenges etc. Pt will let us know when he is ready for it. F/u with Oral surgeon/dentist as per schedule. Cont f/u with Uro as per schedule. Cont f/u with Psych and Counsellor at [facility] as per schedule. Cont f/u with Gyne at [place] as per schedule. Cont f/u with Pain clinic at [place] as per schedule. HM: WWE - 02/09, normal as per pt. Cont f/u with Gyne as per schedule. Mammo - 2-3 yrs ago, normal per pt. Ordered again. Flu - Pt declined. Tdap, Pneumo - Pt declined. F/u in 7 months. Annual labs in 04/13. [email or web address] Not available 08/29/2024 10:24:51 Plan of Treatment Reminders Order Date Submit Date Provider Last Modified By Organization Details Last Modified Time Details Appointments Physical/ Annual Wellness 30 2024 09:30A M Jeff Escobar MD Not available Not available Not available Lab culture, urine + sensitivi ty 2024 025 [facility] ([facility] [address] [place], [address], 10/22/2024 12:57:11 urinalysi s, dipstick 2024 025 [facility], [address] [place] [address], [address], 10/21/2024 11:16:35 Referral mental health counselor referral - Please call patient to schedule an appointme nt. Thank you. 2023 024 [email or web address] Leny Martinez Ma [facility], [address], [address], 07/28/2024 09:07:38 Procedures None recorded. Surgeries None recorded. Imaging MAMMO, screening , bilateral [email or web address] [facility], [address] [place] [address], [address], 08/29/2024 16:39:59 Medication Orders tamsulosi n 0.4 mg capsule 2024 025 [facility] #[id number], [address] [facility], [place], [place], [id number], 10/21/2024 10:39:32 Medrol (Nilson) 4 mg tablets in a dose pack 2024 025 [facility] #[id number], [address] [facility], [place], [place], [id number], 10/21/2024 10:40:28 buspirone 10 mg tablet 2024 025 [facility] #[id number], [address] [facility], [place], [place], [id number], 08/29/2024 10:20:04 buspirone 10 mg tablet 2023 024 [id number], [address] [facility], [place], [place], [id number], 06/29/2024 16:29:46 famotidin e 20 mg tablet 2023 024 [facility] #[id number], [address] [facility], [place], [place], [id number], 10/21/2024 10:14:19 Patient TargetsNo targets recorded. Patient InstructionsNo instructions recorded. Reason for Referral Mental Health Counselor Refe rral for Generalized anxiety disorder Please call patient to schedule an appointment. Thank you. Referring Physician: Jeff Escobar, Family Medicine, Encounter Date: 06/29/2024 Results Created Date Observation Date Name Description Value Unit Range Abnormal Flag Note LastModifiedBy Organization Detail LastModifiedTime 04/18/20 24 04/18/2024 CBC/C OMPLE TE BLD COUNT W/DIF F white blood cells 6.8 x10'3 /uL 4.2-10 .8 Not Available [facility] (Lab) [address] [place], [address], 04/18/2024 13:43:13 04/18/20 24 04/18/2024 CBC/C OMPLE TE BLD COUNT W/DIF F red blood cells 3.98 x10'6 /uL 3.80-5 .20 Not Available [facility] (Lab) [address] [place], [address], 04/18/2024 13:43:13 04/18/20 24 04/18/2024 CBC/C OMPLE TE BLD COUNT W/DIF F hemoglobin 12.9 g/dL 12.0-1 5.6 Not Available [facility] (Lab) [address] [place], [address], 04/18/2024 13:43:13 04/18/20 24 04/18/2024 CBC/C OMPLE TE BLD COUNT W/DIF F hematocrit 38.4 % 35.7-4 5.7 Not Available [facility] (Lab) [address] [place], [address], 04/18/2024 13:43:13 04/18/20 24 04/18/2024 CBC/C OMPLE TE BLD COUNT W/DIF F mean red cell volume 96.5 fL 82.0-9 9.0 Not Available [facility] (Lab) [address] [place], [address], 04/18/2024 13:43:13 04/18/20 24 04/18/2024 CBC/C OMPLE TE BLD COUNT W/DIF F mean red cell hemoglobin 32.4 pg 27.0-3 3.0 Not Available [facility] (Lab) [address] [place], [address], 04/18/2024 13:43:13 04/18/20 24 04/18/2024 CBC/C OMPLE TE BLD COUNT W/DIF F mean RBC HGB concentratio n 33.6 g/dL 31.0-3 6.0 Not Available [facility] (Lab) [address] [place], [address], 04/18/2024 13:43:13 04/18/20 24 04/18/2024 CBC/C OMPLE TE BLD COUNT W/DIF F red cell distribution width 12.3 % 11.8-1 5.5 Not Available [facility] (Lab) [address] [place], [address], 04/18/2024 13:43:13 04/18/20 24 04/18/2024 CBC/C OMPLE TE BLD COUNT W/DIF F platelets 314 x10'3 /uL 150-40 0 Not Available [facility] (Lab) [address] [place], [address], 04/18/2024 13:43:13 04/18/20 24 04/18/2024 CBC/C OMPLE TE BLD COUNT W/DIF F mean platelet volume 11.9 fL 9.0-12 .4 Not Available [facility] (Lab) [address] [place], [address], 04/18/2024 13:43:13 04/18/20 24 04/18/2024 CBC/C OMPLE TE BLD COUNT W/DIF F neutrophils 64.9 % 39.0-7 2.0 Not Available [facility] (Lab) [address] [place], [address], 04/18/2024 13:43:13 04/18/20 24 04/18/2024 CBC/C OMPLE TE BLD COUNT W/DIF F lymphocytes 26.0 % 16.0-4 7.0 Not Available [facility] (Lab) [address] [place], [address], 04/18/2024 13:43:13 04/18/20 24 04/18/2024 CBC/C OMPLE TE BLD COUNT W/DIF F monocytes 6.8 % 5.0-12 .0 Not Available [facility] (Lab) [address] [place], [address], 04/18/2024 13:43:13 04/18/20 24 04/18/2024 CBC/C OMPLE TE BLD COUNT W/DIF F eosinophils 1.6 % 1.0-7. 0 Not Available [facility] (Lab) [address] [place], [address], 04/18/2024 13:43:13 04/18/20 24 04/18/2024 CBC/C OMPLE TE BLD COUNT W/DIF F basophils 0.3 % 0.0-2. 0 Not Available [facility] (Lab) [address] [place], [address], 04/18/2024 13:43:13 04/18/20 24 04/18/2024 CBC/C OMPLE TE BLD COUNT W/DIF F immature granulocytes 0.4 % 0.00-0 .50 Not Available [facility] (Lab) [address] [place], [address], 04/18/2024 13:43:13 04/18/20 24 04/18/2024 CBC/C OMPLE TE BLD COUNT W/DIF F neutrophils, absolute count 4.42 x10'3 /uL 1.5-8. 0 Not Available [facility] (Lab) [address] [place], [address], 04/18/2024 13:43:13 04/18/20 24 04/18/2024 CBC/C OMPLE TE BLD COUNT W/DIF F lymphocytes, absolute count 1.77 x10'3 /uL 1.07-3 .43 Not Available [facility] (Lab) [address] [place], [address], 04/18/2024 13:43:13 04/18/20 24 04/18/2024 CBC/C OMPLE TE BLD COUNT W/DIF F monocytes, absolute count 0.46 x10'3 /uL 0.29-0 .99 Not Available [facility] (Lab) [address] [place], [address], 04/18/2024 13:43:13 04/18/20 24 04/18/2024 CBC/C OMPLE TE BLD COUNT W/DIF F eosinophils, absolute count 0.11 x10'3 /uL 0.02-0 .53 Not Available [facility] (Lab) [address] [place], [address], 04/18/2024 13:43:13 04/18/20 24 04/18/2024 CBC/C OMPLE TE BLD COUNT W/DIF F basophils, absolute count 0.02 x10'3 /uL 0.01-0 .08 Not Available [facility] (Lab) [address] [place], [address], 04/18/2024 13:43:13 04/18/20 24 04/18/2024 CBC/C OMPLE TE BLD COUNT W/DIF F immature granulocytes ,absolute 0.03 x10'3 /uL 0.00-0 .05 Not Available [facility] (Lab) [address] [place], [address], 04/18/2024 13:43:13 04/18/20 24 04/18/2024 CBC/C OMPLE TE BLD COUNT W/DIF F nucleated red blood cells 0.0 % -0 Not Available [facility] (Lab) [address] [place], [address], 04/18/2024 13:43:13 04/18/20 24 04/18/2024 CBC/C OMPLE TE BLD COUNT W/DIF F NRBC# 0.00 x10'3 /uL Not Available [facility] (Lab) [address] [place], [address], 04/18/2024 13:43:13 04/18/20 24 04/18/2024 LIPID PANEL cholesterol 133 mg/dL 140-19 9 low NIH YEIMY NSUS RECOM MENDA TION FOR TOBI STERO L: ADULT CHILD LOW RISK: <200 <170 BORDE RLINE : <200- 239 ----- HIGH RISK: >240 >200 Not Available [facility] (Lab) [address] [place], [address], 04/18/2024 14:24:16 04/18/20 24 04/18/2024 LIPID PANEL triglyceride s 99 mg/dL 0-150 NIH YEIMY NSUS REPOR T RECOM MENDA TION FOR TRIGL YCERI STEWART: ADULT CHILD LOW RISK: <150 ----- BODER LINE: 150-1 99 ----- HIGH RISK: >200 ----- Not Available [facility] (Lab) [address] [place], [address], 04/18/2024 14:24:16 04/18/2004/18/2024 LIPID PANEL HDL cholesterol 35 mg/dL 40- low Not Available [facility] (Lab) [address] [place], [address], 04/18/2024 14:24:16 04/18/2004/18/2024 LIPID PANEL LDL cholesterol, calculated 78 mg/dL 0-130 NIH YEIMY NSUS REPOR T RECOM MENDA TIONS FOR LDL: ADULT CHILD LOW RISK <130 <110 (OPTI MAL LDL) <100 ----- BORDE RLINE : 130-1 59 ----- HIGH RISK: >160 >130 A TRIGL YCERI DE RESUL T >400 INVAL IDATE S THE CALCU LATIO N FOR LDL FRACT IONAT ION - THE LDL RESUL T WILL NOT BE REPOR MARCO. Not Available [facility] (Lab) [address] [place], [address], 04/18/2024 14:24:16 04/18/20 24 04/18/2024 COMPR EHENS RICCARDO METAB OLIC PANEL sodium 141 mmol/ L 137-14 5 Not Available [facility] (Lab) [address] [place], [address], 04/18/2024 14:24:25 04/18/20 24 04/18/2024 COMPR EHENS RICCARDO METAB OLIC PANEL potassium 4.1 mmol/ L 3.5-5. 1 Not Available [facility] (Lab) [address] [place], [address], 04/18/2024 14:24:25 04/18/20 24 04/18/2024 COMPR EHENS RICCARDO METAB OLIC PANEL chloride 108 mmol/ L 98-107 high Not Available [facility] (Lab) [address] [place], [address], 04/18/2024 14:24:25 04/18/20 24 04/18/2024 COMPR EHENS RICCARDO METAB OLIC PANEL carbon dioxide 23 mmol/ L 22-30 Not Available [facility] (Lab) [address] [place], [address], 04/18/2024 14:24:25 04/18/20 24 04/18/2024 COMPR EHENS RICCARDO METAB OLIC PANEL anion gap 14.1 mmol/ L 14-22 Not Available [facility] (Lab) [address] [place], [address], 04/18/2024 14:24:25 04/18/20 24 04/18/2024 COMPR EHENS RICCARDO METAB OLIC PANEL glucose 93 mg/dL 70-99 Not Available [facility] (Lab) [address] [place], [address], 04/18/2024 14:24:25 04/18/20 24 04/18/2024 COMPR EHENS RICCARDO METAB OLIC PANEL BUN 7 mg/dL 8-19 low Not Available [facility] (Lab) [address] [place], [address], 04/18/2024 14:24:25 04/18/20 24 04/18/2024 COMPR EHENS RICCARDO METAB OLIC PANEL creatinine 0.81 mg/dL 0.66-1 .25 Not Available [facility] (Lab) [address] [place], [address], 04/18/2024 14:24:25 04/18/20 24 04/18/2024 COMPR EHENS RICCARDO METAB OLIC PANEL GFR >60 Refer ence Range : [place] GFR Healt hy Adult : >60 mL/mi n/1.7 3 m2 Chron ic Kidne y Disea se: 15-60 mL/mi n/1.7 3 m2 Kidne y Failu re: <15/m L/min /1.73 m2 www.n iddk. nih.g ov The MDRD study equat ion has not been valid ated in child juancho <18 years of age; pregn ant women ; the elder ly >85 years of age; or in some racia l or ethni c subgr oups, such as Hisnm nics. Outsi de the valid ated zeinab eters , estim ated GFR is less accur ate, requi ring clini jeffrey judgm ent on a case- by-ca se basis . Clini jeffrey inter preta tion for other races and ages must be made by the clini omkar. The MDRD study equat ion has not been valid ated for the evalu ation of serum creat inine relat ed to nutri poncho l statu s or medic ation usage . For perso ns <18 years of age, a pedia tric GFR calcu lator is avail able on the [facility] websi te: https ://lex hodges.alexys rg/pr edisoness ional s/kdo qi/gf r_cal culat or Not Available [facility] (Lab) [address] [place], [address], 04/18/2024 14:24:25 04/18/2004/18/2024 COMPR EHENS RICCARDO METAB OLIC PANEL alkaline phosphatase 82 U/L 38-126 Not Available [facility] (Lab) [address] [place], [address], 04/18/2024 14:24:25 04/18/20 24 04/18/2024 COMPR EHENS RICCARDO METAB OLIC PANEL alanine aminotransfe rase 6 U/L 0-35 Not Available [facility] (Lab) [address] [place], [address], 04/18/2024 14:24:25 04/18/20 24 04/18/2024 COMPR EHENS RICCARDO METAB OLIC PANEL aspartate aminotransfe rase 16 U/L 15-37 Not Available [facility] (Lab) [address] [place], [address], 04/18/2024 14:24:25 04/18/20 24 04/18/2024 COMPR EHENS RICCARDO METAB OLIC PANEL bilirubin, total 0.50 mg/dL 0.20-1 .30 Not Available [facility] (Lab) [address] [place], [address], 04/18/2024 14:24:25 04/18/20 24 04/18/2024 COMPR EHENS RICCARDO METAB OLIC PANEL calcium 9.9 mg/dL 8.4-10 .2 Not Available [facility] (Lab) [address] [place], [address], 04/18/2024 14:24:25 04/18/20 24 04/18/2024 COMPR EHENS RICCARDO METAB OLIC PANEL total protein 7.2 g/dL 6.3-8. 2 Not Available [facility] (Lab) [address] [place], [address], 04/18/2024 14:24:25 04/18/20 24 04/18/2024 COMPR EHENS RICCARDO METAB OLIC PANEL albumin 4.7 g/dL 3.4-5. 0 Not Available [facility] (Lab) [address] [place], [address], 04/18/2024 14:24:25 04/18/20 24 04/18/2024 COMPR EHENS RICCARDO METAB OLIC PANEL globulin 2.5 g/dL 2.6-4. 2 low Not Available [facility] (Lab) [address] [place], [address], 04/18/2024 14:24:25 04/18/20 24 04/18/2024 COMPR EHENS RICCARDO METAB OLIC PANEL A/G ratio 1.9 ratio 1.0-2. 0 Not Available [facility] (Lab) [address] [place], [address], 04/18/2024 14:24:25 04/18/20 24 04/18/2024 MAGNE SIUM magnesium 2.0 mg/dL 1.6-2. 3 Not Available [facility] (Lab) [address] [place], [address], 04/18/2024 14:24:34 04/18/20 24 04/18/2024 URINA LYSIS W/REF HYACINTH CULTU RE color BROWN abnormal Not Available [facility] (Lab) [address] [place], [address], 04/18/2024 14:42:41 04/18/20 24 04/18/2024 URINA LYSIS W/REF HYACINTH CULTU RE clarity CLEAR Not Available [facility] (Lab) [address] [place], [address], 04/18/2024 14:42:41 04/18/20 24 04/18/2024 URINA LYSIS W/REF HYACINTH CULTU RE sp grav 1.015 1.001- 1.035 Not Available [facility] (Lab) [address] [place], [address], 04/18/2024 14:42:41 04/18/20 24 04/18/2024 URINA LYSIS W/REF HYACINTH CULTU RE pH 8.0 pH_un its 5.0-9. 0 Not Available [facility] (Lab) [address] [place], [address], 04/18/2024 14:42:41 04/18/20 24 04/18/2024 URINA LYSIS W/REF HYACINTH CULTU RE leukocytes 25 nagi/u L negati ve- abnormal Not Available [facility] (Lab) [address] [place], [address], 04/18/2024 14:42:41 04/18/20 24 04/18/2024 URINA LYSIS W/REF HYACINTH CULTU RE nitrite NEGATI VE negati ve- Not Available [facility] (Lab) [address] [place], [address], 04/18/2024 14:42:41 04/18/20 24 04/18/2024 URINA LYSIS W/REF HYACINTH CULTU RE protein 100 mg/dL negati ve-15 abnormal Not Available [facility] (Lab) [address] [place], [address], 04/18/2024 14:42:41 04/18/20 24 04/18/2024 URINA LYSIS W/REF HYACINTH CULTU RE glucose NORMAL mg/dL normal - Not Available [facility] (Lab) [address] [place], [address], 04/18/2024 14:42:41 04/18/20 24 04/18/2024 URINA LYSIS W/REF HYACINTH CULTU RE ketones NEGATI VE mg/dL negati ve- Not Available [facility] (Lab) [address] [place], [address], 04/18/2024 14:42:41 04/18/20 24 04/18/2024 URINA LYSIS W/REF HYACINTH CULTU RE urobilinogen 1 mg/dL normal -1 abnormal Not Available [facility] (Lab) [address] [place], [address], 04/18/2024 14:42:41 04/18/20 24 04/18/2024 URINA LYSIS W/REF HYACINTH CULTU RE bilirubin NEGATI VE mg/dL negati ve- Not Available [facility] (Lab) [address] [place], [address], 04/18/2024 14:42:41 04/18/20 24 04/18/2024 URINA LYSIS W/REF HYACINTH CULTU RE blood 25 tay/u L negati ve- abnormal Not Available [facility] (Lab) [address] [place], [address], 04/18/2024 14:42:41 04/18/20 24 04/18/2024 URINA LYSIS W/REF HYACINTH CULTU RE white blood cells 0-8 per_h pf 0-8 Not Available [facility] (Lab) [address] [place], [address], 04/18/2024 14:42:41 04/18/20 24 04/18/2024 URINA LYSIS W/REF HYACINTH CULTU RE red blood cells 0-4 per_h pf 0-4 Not Available [facility] (Lab) [address] [place], [address], 04/18/2024 14:42:41 04/18/20 24 04/18/2024 URINA LYSIS W/REF HYACINTH CULTU RE bacteria OCCASI ONAL per_h pf Not Available [facility] (Lab) [address] [place], [address], 04/18/2024 14:42:41 04/18/20 24 04/18/2024 URINA LYSIS W/REF HYACINTH CULTU RE epithelial cells PRESEN T abnormal Not Available [facility] (Lab) [address] [place], [address], 04/18/2024 14:42:41 04/18/20 24 04/18/2024 URINA LYSIS W/REF HYACINTH CULTU RE mucus MANY abnormal Not Available [facility] (Lab) [address] [place], [address], 04/18/2024 14:42:41 04/18/20 24 04/18/2024 URINA LYSIS W/REF HYACINTH CULTU RE casts NONE none seen- Not Available [facility] (Lab) [address] [place], [address], 04/18/2024 14:42:41 04/18/20 24 04/18/2024 URINA LYSIS W/REF HYACINTH CULTU RE crystals NONE none seen- Not Available [facility] (Lab) [address] [place], [address], 04/18/2024 14:42:41 04/18/20 24 04/18/2024 URINA LYSIS W/REF HYACINTH CULTU RE yeast NONE SEEN none seen- Not Available [facility] (Lab) [address] [place], [address], 04/18/2024 14:42:41 04/18/20 24 04/18/2024 URINA LYSIS W/REF HYACINTH CULTU RE squamous epithelial cells OCCASI ONAL abnormal Not Available [facility] (Lab) [address] [place], [address], 04/18/2024 14:42:41 04/18/20 24 04/18/2024 TSH W/REF HYACINTH FT4 TSH with reflex free T4 1.250 uIU/m L 0.465- 4.680 Not Available [facility] (Lab) [address] [place], [address], 04/18/2024 14:54:44 04/18/20 24 04/18/2024 VITAM IN D 25-HY DROXY [id number] 47.9 NG/mL 30-100 Vitam in D Statu s: Defic ient: <20 ng/mL Insuf ficie nt: 20-29 ng/mL Suffi cient : 30-10 0 ng/mL Not Available [facility] (Lab) [address] [place], [address], 04/18/2024 14:58:59 04/18/20 24 04/18/2024 HEMOG LOBIN A1C HA1C 4.5 % 4.0-6. 0 Diabe marbin Scree daniel Crite betsy: <5.7% Consi stent with absen ce of diabe marbin 5.7-6 .4% Consi stent with incre ased risk for diabe marbin (pred iabet es) >OR=6 .5% Consi stent with diabe marbin REFER ENCE: Diabe marbin Care 2015, 39( ppl.1 ):s13 -s22 Not Available [facility] (Lab) [address] [place], [address], 04/18/2024 15:48:23 04/18/20 24 04/18/2024 VITAM IN B12 (JOSETTE JESÚS ) vb12 902 pg/mL 239-93 1 Not Available [facility] (Lab) [address] [place], [address], 04/18/2024 16:19:48 04/18/20 24 04/18/2024 FOLAT E, SERUM /PLAS MA folate 10.2 NG/mL 2.76-2 0.0 Not Available [facility] (Lab) [address] [place], [address], 04/18/2024 16:20:00 10/22/19 25 10/21/2024 urina lysis , dipst ick Leukocytes (reference range: negative nagi/ l) Negati ve Not Available [address], [address], 10/21/2024 11:00:04 10/22/19 25 10/21/2024 urina lysis , dipst ick Nitrite (reference rage: negative mg/dl) negati ve Not Available [address], [address], 10/21/2024 11:00:04 10/22/19 25 10/21/2024 urina lysis , dipst ick Urobilinogen (reference range: 0.2-1 mg/dl) 0.2 Not Available [address], [address], 10/21/2024 11:00:04 10/22/19 25 10/21/2024 urina lysis , dipst ick Protein (reference range: negative mg/dl) Trace Not Available [address], [address], 10/21/2024 11:00:04 10/22/19 25 10/21/2024 urina lysis , dipst ick pH (reference range: 5-7) 6.5 Not Available [address], [address], 10/21/2024 11:00:04 10/22/19 25 10/21/2024 urina lysis , dipst ick Blood (reference range: negative Tay/ l) Modera te Not Available [address], [address], 10/21/2024 11:00:04 10/22/19 25 10/21/2024 urina lysis , dipst ick Specific [place] (reference range: 1.005-1.030) 1.015 Not Available [address], [address], 10/21/2024 11:00:04 10/22/19 25 10/21/2024 urina lysis , dipst ick Ketone (reference range: negative mg/dl) Negati ve Not Available [address], [address], 10/21/2024 11:00:04 10/22/19 25 10/21/2024 urina lysis , dipst ick Bilirubin (reference range: negative mg/dl) Negati ve Not Available [facility] [address] [place] [address], [address], 10/21/2024 11:00:04 10/22/19 25 10/21/2024 urina lysis , dipst ick Glucose (reference range: negative mg/dl) Negati ve Not Available [facility] [address] [facility], [place], [address], 10/21/2024 11:00:04 10/22/19 25 10/21/2024 urina lysis , dipst ick Appearance Clear Not Available [address], [address], 10/21/2024 11:00:04 10/22/19 25 10/21/2024 urina lysis , dipst ick Color Dark Yellow Not Available [address], [address], 10/21/2024 11:00:04 04/21/20 24 04/21/2024 XR, chest , 2 view No observ ation record ed. [email or web address] [address], [place], [address], 04/28/2024 10:40:21 Result Notes None recorded. Problems Name Problem SNOMED Code Status Onset Date Resolution Date Notes Provider Name and Address Organization Details Recorded Time Bipolar disorder 14850579 Active 2017 Not Available [facility] [facility] 3 09:18:53 Anxiety disorder 926790988 Active 2020 Not Available [facility] 3 09:18:53 Mixed anxiety and depressiv e disorder 669647569 Active 2017 Not Available [facility] 3 09:18:54 Lumbar spondylos is 653611891 Active 2020 Not Available [facility] 3 09:18:54 Chronic low back pain 275343565 Active 2017 Not Available [facility] 3 09:18:54 Smoker 94505093 Active 2017 Not Available [facility] 3 09:18:54 Spondylos is 1926603 Completed 201702/06/2021 Not Available [facility] 3 09:18:54 Pneumonia 647589417 Active 2022 Jeff Escobar MD [address], [place], [address] , [place] [facility] 3 10:27:28 Colitis 66927228 Active 2022 Jeff Escobar MD [address], [place], [address] , [facility] 3 10:27:35 Seasonal allergic rhinitis 039263570 Active 2022 Jeff Escobar MD [address], [place], [address] , [place] [facility] 3 10:05:03 Idiopathi c hypercalc emia 946464624 Active 2022 Jeff Escobar MD [address], [place], [address] , [place] [facility] 3 09:59:03 Vitamin B12 deficienc y (non anemic) 12856483 Active 2022 Jeff Escobar MD [address], [place], [address] , [facility] 3 09:59:17 Microscop ic hematuria 719582149 Active 2022 Jeff Escobar MD [address], [place], [address] , [facility] 3 09:59:38 Dysuria 49404036 Active 2022 Jeff Escobar MD [address], [place], [address] , [place] [facility] 3 14:52:26 Urinary tract infectiou s disease 40397838 Active 2022 Jeff Escobar MD [address], [place], [address] , [place] [facility] 3 14:54:02 Left flank pain 318453515 Active 2022 Jeff Escobar MD [address], [place], [address] , [facility] 3 15:06:50 Exposure to Influenza virus Active 2022 CHERELLE Mendoza [address], [place], [address] , [place] [facility] 3 10:57:04 Abdominal pain 86474839 Active 2023 Jeff Escobar MD [address], [place], [address] , [place] [facility] 4 15:05:31 Irritable bowel syndrome 06862220 Active 2023 Jfef Escobar MD [address], [place], [address] , [place] [facility] 4 15:07:18 Urinary symptoms 168806047 Active 2023 Jeff Escobar MD [address], [place], [address] , [place] [facility] 4 15:29:47 Toothache 63137993 Active 2023 Jeff Escobar MD [address], [place], [address] , [place] [facility] 4 12:39:43 Infection of tooth 913306628 Active 2023 Jeff Escobar MD [address], [place], [address] , [facility] 4 12:47:08 Dental caries 10495298 Active 2023 Jeff Escobar MD [address] [address], [place], [address] , [facility] 4 12:56:25 Umbilical pain 54244592 Active 2023 Jeff Escobar MD [address] [address], [place], [address] , [facility] 4 17:44:38 Gastroeso phageal reflux disease without esophagit is 521289612 Active 2023 Jeff Escobar MD [address] [address], [place], [address] , [facility] 4 17:44:51 Generaliz ed anxiety disorder 22359121 Active 2023 Jeff Escobar MD [address] [address], [place], [address] , [facility] 4 16:27:14 Depressiv e disorder 86356445 Active 2023 Jeff Escobar MD [address] [address], [place], [address] , [facility] 4 16:41:03 Right flank pain 058506601 Active 2024 AYDEN Carrero [address] [address], [place], [address] , [facility] 5 10:35:01 Right side sciatica 16277498728 9101 Active 2024 AYDEN Carrero [address], [place], [address] , [facility] 5 10:39:42 Problem Notes None recorded. Procedures Surgical History Date Name Laterality Status Provider Name and Address Organization Details Recorded Time 5 Smoking Cessation completed Jeff Escobar MD [address], [place], [address], [facility] 08/29/2024 10:04:55 4 Smoking Cessation completed Jeff Escobar MD [address], [place], [address], [facility] 04/13/2024 10:31:02 3 Smoking Cessation completed Jeff Escobar MD [address], [place], [address], [facility] 05/11/2023 10:35:02 3 Smoking Cessation completed Jeff Escobar MD [address], [place], [address], [facility] 03/25/2023 10:09:10 3 Smoking Cessation completed MD Jen Voss [address], [place], [address], [facility] 10/29/2022 15:22:00 3 Smoking Cessation completed Jeff Escobar MD [address], [place], [address], [facility] 09/18/2022 10:31:13 Imaging Results None recorded. Procedure Notes None recorded. Medical Equipment None Reported. Allergies No known drug allergies Medications Name Sig Start Date Stop Date Status Note LastModified by Organization Details LastModified Time cyclobenzap rine 10 mg tablet Take 1 tablet every 12 hours by oral route as needed for 30 days. 02/06 completed Not Available Not Available Not Available amoxicillin 500 mg capsule 09/18 completed Not Available Not Available Not Available cefazolin 1 gram solution for injection Take 1 g by injection route for 1 day. 01/26 completed Not Available Not Available Not Available tizanidine 2 mg tablet TAKE 1 TABLET BY MOUTH DAILY AT BEDTIME NEEDED active Not Available Not Available No t Available clindamycin HCl 300 mg capsule TAKE 1 CAPSULE BY MOUTH THREE TIMES DAILY FOR 7 DAYS DIRECTED 06/15 completed Not Available Not Available Not Available trazodone 50 mg tablet TAKE 1 TABLET BY MOUTH EVERY DAY AT BEDTIME 09/18 completed Not Available Not Available Not Available cetirizine 10 mg tablet Take 1 tablet every day by oral route as directed for 90 days. 2023 active Not Available Not Available Not Avai lable azithromyci n 250 mg tablet 10/22 completed Not Available Not Available Not Available ibuprofen 800 mg tablet TAKE 1 TABLET BY MOUTH THREE TIMES DAILY WITH MEALS 02/26 completed Not Available Not Available Not Available hydrocodone 5 mg-acetamin ophen 325 mg tablet TAKE 1 TABLET BY MOUTH EVERY 8 HOURS NEEDED active Not Available Not Available No t Available meloxicam 15 mg tablet Take 0.5 tablets every 12 hours by oral route as needed for 30 days. 09/18 completed Take with food. Not Available Not Available Not Available metronidazo le 0.75 % (37.5 mg/5 gram) vaginal gel 10/22 completed Not Available Not Available Not Available metronidazo le 250 mg tablet TAKE 2 TABLETS BY MOUTH EVERY 8 HOURS FOR 5 DAYS 09/30 completed Not Available Not Available Not Available penicillin V potassium 500 mg tablet TAKE 1 TABLET BY MOUTH THREE TIMES DAILY FOR 7 DAYS DIRECTED 01/26 completed Not Available Not Available Not Available olanzapine 10 mg tablet TK 1 T PO QD HS 02/06 completed Not Available Not Available Not Available ciprofloxac in 500 mg tablet TAKE 1 TABLET BY MOUTH EVERY 12 HOURS FOR 5 DAYS DIRECTED 10/26 completed Not Available Not Available Not Available nicotine 10 mg inhalation cartridge Inhale 1 inhalatio n every 4-6 hours by inhalatio n route as directed for 30 days. 10/21 completed Not Available Not Available Not Available hydrocodone 10 mg-acetamin ophen 325 mg tablet TAKE 1 TABLET BY MOUTH THREE TIMES DAILY NEEDED 09/18 completed Not Available Not Available Not Available tramadol 50 mg tablet TAKE 1 TABLET BY MOUTH THREE TIMES DAILY NEEDED 09/18 completed Not Available Not Available Not Available amoxicillin 500 mg tablet TAKE 1 TABLET BY MOUTH THREE TIMES DAILY UNTIL ALL TAKEN 04/13 completed Not Available Not Available Not Available terconazole 80 mg vaginal suppository 10/22 completed Not Available Not Available Not Available meloxicam 7.5 mg tablet Take 1 tablet every 12 hours by oral route as needed for 30 days. 10/22 completed Not Available Not Available Not Available ceftriaxone 1 gram solution for injection Take 1 g by injection route for 1 day. 06/16 completed Not Available Not Available Not Available famotidine 20 mg tablet TAKE 1 TABLET BY MOUTH EVERY 12 HOURS DIRECTED 10/21 completed Not Available Not Available Not Available estradiol 1 mg tablet TAKE 1 TABLET BY MOUTH DAILY TO HELP PREVENT ABNORMAL BLEEDING OR BONE LOSS. 08/29 completed Not Available Not Available Not Available tamsulosin 0.4 mg capsule Take 1 capsule every day by oral route as directed for 30 days. 2024 active Not Available Not Available Not Avai lable imiquimod 5 % topical cream packet 02/06 completed Not Available Not Available Not Available baclofen 10 mg tablet Take 1 tablet every 8 hours by oral route as needed for 30 days. 09/18 completed Not Available Not Available Not Available doxycycline monohydrate 100 mg capsule 02/06 completed Not Available Not Available Not Available cyanocobala min (vit B-12) 1,000 mcg/mL injection solution Inject 1 mL as needed by intramusc ular route for 1 day. 10/21 completed Not Available Not Available Not Available oseltamivir 75 mg capsule TAKE 1 CAPSULE BY MOUTH TWICE DAILY FOR 5 DAYS 06/16 completed Not Available Not Available Not Available ranitidine 150 mg tablet 10/22 completed Not Available Not Available Not Available buspirone 10 mg tablet Take 1 tablet every 12 hours by oral route as needed for 90 days. 2024 active Not Available Not Available Not Avai lable diclofenac sodium 75 mg tablet,nahun yed release TAKE 1 TABLET BY MOUTH TWICE DAILY NEEDED active Not Available Not Available No t Available cyanocobala min (vit B-12) 1,[address] 1 tablet every day by sublingua l route as directed for 90 days. 10/21 completed Not Available Not Available Not Available gabapentin 100 mg capsule TAKE 1 CAPSULE BY MOUTH THREE TIMES DAILY 02/06 completed Not Available Not Available Not Available ibuprofen 600 mg tablet TAKE 1 TABLET BY MOUTH EVERY 8 HOURS FOR 10 DAYS NEEDED 06/15 completed Not Available Not Available Not Available levofloxaci n 750 mg tablet TAKE 1 TABLET BY MOUTH DAILY FOR 5 DAYS 09/30 completed Not Available Not Available Not Available methylpredn isolone 4 mg tablets in a dose pack FOLLOW PACKAGE DIRECTION S active Not Available Not Available No t Available ketorolac 60 mg/2 mL intramuscul ar solution Inject 2 mL by intramusc ular route for 1 day. 01/26 completed Not Available Not Available Not Available fluticasone propionate 50 mcg/actuati on nasal spray,suspe nsion 10/22 completed Not Available Not Available Not Available medroxyprog esterone 150 mg/mL intramuscul ar suspension ADMINISTE R 1 ML IN THE MUSCLE EVERY 3 MONTHS 10/21 completed Not Available Not Available Not Available dicyclomine 10 mg capsule TAKE 1 CAPSULE BY MOUTH EVERY 8 HOURS NEEDED 2023 active Not Available Not Available Not Avai lable olanzapine 20 mg tablet TAKE 1 TABLET BY MOUTH DAILY AT BEDTIME active Not Available Not Available No t Available naproxen 500 mg tablet 10/22 completed Not Available Not Available Not Available amoxicillin 875 mg-potassiu m clavulanate 125 mg tablet TAKE 1 TABLET BY MOUTH EVERY 12 HOURS FOR 10 DAYS 09/18 completed Not Available Not Available Not Available hydroxyzine pamoate 25 mg capsule TAKE 1 CAPSULE BY MOUTH EVERY 8 HOURS NEEDED 10/21 completed Not Available Not Available Not Available medroxyprog esterone 150 mg/mL intramuscul ar syringe 06/16 completed Not Available Not Available Not Available Mononessa (28) 0.25 mg-35 mcg tablet 10/22 completed Not Available Not Available Not Available bupropion HCl XL 300 mg 24 hr tablet, extended release TAKE 1 TABLET BY MOUTH DAILY active Not Available Not Available No t Available bupropion HCl XL 150 mg 24 hr tablet, extended release TK 1 T PO QD IN THE MORNING 02/06 completed Not Available Not Available Not Available chlorhexidi ne gluconate 0.12 % mouthwash SWISH AND SPIT 15 ML BY MOUTH TWICE DAILY 02/26 completed Not Available Not Available Not Available Vitals Date Recorded Body height Body mass index (BMI) Body weight Body temperature Heart rate Oxygen saturation Oxygen saturation in Arterial blood by Pulse oximetry Systolic blood pressure Diastolic blood pressure Provider Name and Address Organization Details Last Updated DateTime 5 170.18 cm 21.8 kg/m2 46582.3 9 g 97.5 [degF] 95 /min 96 % 96 % 122 mm[Hg] 72 mm[Hg] Cassie Herrera RN [facility] [employer] [facility] 5 10:15:14 Date Recorded Body height Body mass index (BMI) Body weight Body temperature Respiratory rate Heart rate Heart rate Oxygen saturation Oxygen saturation in Arterial blood by Pulse oximetry Systolic blood pressure Diastolic blood pressure Provider Name and Address Organization Details Last Updated DateTime 5 170.18 cm 21.2 kg/m2 14765.6 7 g 97.5 [degF] 20 /min 107 /min 98 /min 97 % 97 % 120 mm[Hg] 82 mm[Hg] Rona Mead RN [facility] [employer] [facility] 5 10:17:48 Date Recorded Body height Body mass index (BMI) Body weight Body temperature Heart rate Respiratory rate Oxygen saturation Oxygen saturation in Arterial blood by Pulse oximetry Systolic blood pressure Diastolic blood pressure Provider Name and Address Organization Details Last Updated DateTime 4 170.18 cm 20.5 kg/m2 11878.9 5 g 98.3 [degF] 90 /min 16 /min 98 % 98 % 104 mm[Hg] 70 mm[Hg] Ignacio Parsons [facility] [employer] 4 10:34:31 Date Recorded Heart rate Provider Name an d Address Organization Details Last Updated DateTime 06/15/2024 96 /min Jesus Manuel Voss [address], [address], [facility] [employer] [facility] 06/15/2024 17:43:51 Date Recorded Body height Body mass index (BMI) Body weight Body temperature Oxygen saturation Oxygen saturation in Arterial blood by Pulse oximetry Systolic blood pressure Diastolic blood pressure Provider Name and Address Organization Details Last Updated DateTime 4 170.18 cm 20.9 kg/m2 23441.8 6 g 97.3 [degF] 99 % 99 % 110 mm[Hg] 74 mm[Hg] Lala Mix RN [facility] [employer] [facility] 4 17:31:30 Date Recorded Oxygen saturation Oxygen saturation in Arterial blood by Pulse oximetry Provider Name and Address Organization Details Last Updated DateTime 06/29/2024 97 % 97 % Jeff Escobar MD [address], [place], [address], [facility] [employer] 06/29/2024 16:32:08 Date Recorded Body height Body mass index (BMI) Body weight Body temperature Heart rate Systolic blood pressure Diastolic blood pressure Provider Name and Address Organization Details Last Updated DateTime 170.18 cm 20.9 kg/m2 93218.2 4 g 98.1 [degF] 103 /min 120 mm[Hg] 80 mm[Hg] Cassie Herrera RN [facility] [employer] [facility] 16:23:43 Social History Question Answer Notes LastModified by Organizat ion Details LastModified Time Tobacco Smoking Status Current Every Day Smoker Not Available [facility] 09/17/2022 09:13:03 Do You Have An Advance Directive? No [id number] Information not available 09/17/2022 What Is Your Level Of Caffeine Consumption? Moderate [id number] Information not available 09/17/2022 How Much Tobacco Do You Chew? None [id number] Information not available 09/17/2022 In The 14 Days Before Symptom Onset, Have You Had Close Contact With A Laboratory-confirm ed COVID-19 While That Case Was Ill? No [id number] Information not available 09/17/2022 In The 14 Days Before Symptom Onset, Have You Had Close Contact With A Person Who Is Under Investigation For COVID-19 While That Person Was Ill? No [id number] Information not available 09/17/2022 What Type Of Diet Are You Following? REGULAR [id number] Information not available 09/17/2022 Which Illicit Or Recreational Drugs Have You Used? None [id number] Information not available 09/17/2022 Are There Any Guns Present In Your Home? No [id number] Information not available 09/17/2022 Do You Use Your Seat Belt Or Car Seat Routinely? Yes Information not available 10/21/2024 At What Age Did You Start Smoking Tobacco? 17 [id number] Information not available 09/17/2022 Are You Passively Exposed To Smoke? No [id number] Information not available 09/17/2022 How Much Tobacco Do You Smoke? 0.5 PPD [id number] Information not available 09/17/2022 Do You Participate In Social Media? Yes Information not available 10/21/2024 Do You Use Sunscreen Routinely? No [id number] Information not available 09/17/2022 Sex: Female Functional Status Question Answer Note LastModified by Organizat ion Details LastModified Time What is your level of alcohol consumption? 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 Never used electronic cigarettes [id number] Information not available 09/17/2022 What is your exercise level? Moderate [id number] Information not available 09/17/2022 Mental Status Question Answer Note LastModified by Organization D etails LastModified Time Do you feel stressed (tense, restless, nervous, or anxious, or unable to sleep at night)? [id number] Information not available 10/21/2024 Family History Relationship Description Onset Age of this Age Resolved Age Notes LastModified by Organization Details LastModified Time Mother Family history of malignant neoplasm 57 [id number] Not available 09/17/2022 09:13:14 Maternal Grandmother Malignant tumor of cervix 98 [id number] Not available 09/17/2022 09:13:14 Notes:cancer - unknown type Medical History Condition Response BLINDNESS N RHEUMATIC FEVER N BLADDER PROBLEMS N KIDNEY STONES N MRSA N OTHER # 1 N POLIO N LUNG DISEASE/DISORDER N HISTORY OF DRUG ABUSE N RADIATION / CHEMOTHERAPY N COPD N Other # 2 N BLOOD DISEASES N SURGERY N EAR OR HEARING PROBLEMS N MUMPS N SHINGLES N BOWEL PROBLEMS N FEMALE PROBLEMS / INFECTIONS N DEPRESSION (INCLUDING POST ) Y STROKE/TIA N THYROID DISEASE N ULCERS N BENIGN PROSTATIC HYPERPLASIA N MEASLES N CERVICALGIA N HYPOTENSION N TB SKIN TEST N MYOCARDIAL INFARCTION N PARAPELGIA N OBESITY N GERD/NAUSEA N ANEURYSM N URINARY/BLADDER/KIDNEY PROBLEMS N CORONARY ARTERY DISEASE (CAD) N MENIERE'S DISEASE N ADDICTION CONCERNS N ENDOMETRIOSIS N USE OF BLOOD THINNERS N SKIN PROBLEMS N EMPHYSEMA N GASTROINTESTINAL DISORDER N MUSCLE,JOINT OR BONE PROBLEMS N GASTROINTESTINAL BLEEDING N BLOOD CLOTS N ASTHMA N CATARACTS N ERECTILE DYSFUNCTION N GI PROBLEMS N CHF N Low Testosterone N NEUROPATHY N INFERTILITY N AIDS/HIV N FRACTURES N CHEMOTHERAPY / RADIATION N VISION/EYE PROBLEMS N LIVER DISEASE N MALE HYPOGONADISM N HYPERTENSION N TOURETTE'S N ANXIETY DISORDER Y BLOOD TRANSFUSION N ANEMIA/BLOOD DISORDER N CHRONIC EAR INFECTIONS N BRONCHITIS N TUBERCULOSIS N GLAUCOMA N FOOT PROBLEM N DIVERTICULITIS N CHICKENPOX N SLEEP APNEA N ALLERGIES/HAYFEVER N INFECTIOUS DISEASE N HEART ARRHYTHMIA N PROSTATE N INSOMNIA N HIGH CHOLESTEROL / HYPERLIPIDEMIA N HYPERTHYROIDISM N EYE PROBLEMS N EATING DISORDER N EDEMA N CHRONIC PAIN SYNDROME N CONSTIPATION N CAROTID BLOCKAGE N BACK / NECK PROBLEMS N HAVE YOU BEEN HOSPITALIZED OR SEEN IN [facility] IN THE PAST YEAR ? N ATHEROSCLEROSIS N BREAST PROBLEMS N DIALYSIS N ECZEMA N FIBROMYALGIA N OSTEOPOROSIS N ARTHRITIS N NO SIGNIFICANT PAST MEDICAL HISTORY N APPENDICITIS N DIABETES, TYPE N BAD TEETH N HEARTBURN / REFLUX N ADD/ADHD Y AUTISM SPECTRUM DISORDER (ASD) N HEPATITIS / LIVER DISEASE N PULMONARY DISEASE N GOUT N SLEEP DISORDER N ALZHEIMER'S DISEASE N PAIN N HERPES N DEMENTIA N HEADACHES/MIGRAINES N SEIZURES/EPILEPSY N VASCULAR DISEASE N PACEMAKER N DIZZINESS N HEART DISEASE/HEART PROBLEMS N KIDNEY DISEASE N DEVELOPMENTAL OR BEHAVIORAL DISORDERS N MULTIPLE SCLEROSIS N SCARLET FEVER N MENTAL DISORDER/ILLNESS N CARDIAC ARRHYTHMIA N CANCER: SPECIFY N PNEUMONIA N ATRIAL FIBRILLATION N Gall Stones N PULMONARY EMBOLISM N AUTOIMMUNE DISEASE N Gynecological HistoryNo gynecological history recorded. Obstetrics History GPAL:G 0 P 0 0 0 0 Past Encounters Encounter ID Performer Location Encounter Start Date Encounter Closed Date Diagnosis/Indication Diagnosis SNOMED-CT Code Diagnosis ICD10 Code Diagnosis Note [id number] [facility] [address] [place] [id number] 02/06/2021 00:00:00 02/06/2021 17:27:50 [id number] [facility] [address] [place] [id number] 09/18/2022 10:10:26 09/18/2022 10:55:24 Hospital inpatient stay within past 30 days [id number] 106 Z76.89 Pneumonia 176794232 J18. 9 Colitis 94020194 K52.9 Smoker 72961151 F17.200 Bipolar disorder 0556856 4 F31.9 Anxiety disorder 8415108 06 F41.9 Chronic low back pain 27 9315101 M54.50 [id number] Jeff Escobar MD [address] [address] 09/30/2022 08:46:40 09/30/2022 10:19:18 Transition of care 9895712808 105 Z75.8 Hospital i npatient stay within past 30 days 6124228541 106 Z76.89 Pneumonia 001733288 J18. 9 Colitis 87940241 K52.9 Chronic low back pain 27 8637381 M54.50 Smoker 24899634 F17.200 [id number] Jeff Escobar MD [address] [address] 10/29/2022 15:01:57 10/29/2022 15:29:53 Pneumonia 105567474 J18.9 resolved Bipolar disorder 7393586 4 F31.9 Anxiety disorder 5715021 06 F41.9 Chronic low back pain 27 7354074 M54.50 Colitis 91025805 K52.9 resolved Smoker 24309024 F17.200 [id number] Jeff Escobar MD [address] [address] 02/26/2023 11:13:34 02/26/2023 11:52:35 Bipolar disorder 23269070 F31.9 Anxiety disorder 3759418 06 F41.9 Chronic low back pain 27 4986285 M54.50 Smoker 91683954 F17.200 History an d physical examination, pre-employment 755173534 Z02.1 [id number] Jeff Escobar MD [address] [address] 03/25/2023 09:36:57 03/25/2023 10:11:59 Chronic low back pain 934759592 M54.50 Bipolar disorder 2681682 4 F31.9 Anxiety disorder 06 F41.9 Smoker 82184682 F17.200 Adult [facility] th examination 331769415 Z00.00 Diabetes m ellitus screening 105152704 Z13.1 Seasonal a llergic rhinitis 856188895 J30.2 [id number] Jeff Escobar MD [place] [id number] 1 04/09/2023 09:51:39 04/09/2023 10:25:28 Chronic low back pain 861642548 M54.50 Bipolar disorder 0672638 4 F31.9 Anxiety disorder F41.9 Smoker 08923400 F17.200 Seasonal a llergic rhinitis 543453434 J30.2 Idiopathic hypercalcemia 652306092 E83.52 Vitamin B1 2 deficiency (non anemic) 64855255 E53.8 Microscopic hematuria 19 9838796 R31.29 [id number] Rona Oakley NP [place] [id number] 1 04/24/2023 12:11:12 04/24/2023 13:03:56 Vitamin B12 deficiency (non anemic) 84886382 E53.8 [id number] Jeff Escobar MD [place] [id number] 1 04/29/2023 14:31:19 04/29/2023 15:13:03 Dysuria 99362346 R30.0 Urinary tr act infectious disease 23345490 N39.0 Vitamin B1 2 deficiency (non anemic) 51843996 E53.8 Left flank pain 29585551 9 R10.9 [id number] Jeff Escobar MD [place] [id number] 1 05/11/2023 10:13:46 05/11/2023 10:48:31 Vitamin B12 deficiency (non anemic) 81553421 E53.8 Idiopathic hypercalcemia [id number] E83.52 Microscopic hematuria 19 4282472 R31.29 Chronic low back pain 27 0010479 M54.50 Seasonal a llergic rhinitis 113855294 J30.2 Bipolar disorder 1688827 4 F31.9 Anxiety disorder 06 F41.9 Smoker 12274635 F17.484 [id number] Jeff Escobar MD [address] [address] 04/16/2023 09:52:38 04/16/2023 17:55:59 Vitamin B12 deficiency (non anemic) 39420243 E53.8 [id number] Jeff Escobar MD [address] [address] 05/26/2023 16:17:32 05/26/2023 16:53:56 Microscopic hematuria 243746224 R31.29 Idiopathic hypercalcemia 229997208 E83.52 Vitamin B1 2 deficiency (non anemic) 91064628 E53.8 Seasonal a llergic rhinitis 109903309 J30.2 Bipolar disorder 1691315 4 F31.9 Anxiety disorder F41.9 [id number] Jeff Escobar MD [address] [address] 06/01/2023 16:22:50 06/01/2023 16:26:36 [id number] Jeff Escobar MD [address] [address] 1 06/09/2023 16:06:15 06/09/2023 16:25:48 [id number] Jeff Escobar MD [address] [address] 06/16/2023 17:42:33 06/16/2023 17:56:30 Microscopic hematuria 773745287 R31.29 Idiopathic hypercalcemia 597728666 E83.52 resolved Vitamin B1 2 deficiency (non anemic) 63602286 E53.8 Seasonal a llergic rhinitis 614630286 J30.2 Bipolar disorder 5453513 4 F31.9 Anxiety disorder F41.9 [id number] Jeff Escobar MD [address] [address] 09/16/2023 14:34:22 09/16/2023 15:33:31 Abdominal pain 61031679 R10.9 Irritable bowel syndrome 07947324 K58.9 Urinary tr act infectious disease 02016344 N39.0 Urinary symptoms 2178493 08 R39.9 [id number] Jeff Escobar MD [address] [address] 1 10/27/2023 16:30:48 10/27/2023 16:51:27 Irritable bowel syndrome 25894027 K58.9 Abdominal pain 52314745 R10.9 resolved [id number] Jeff Escobar MD [address] [address] 01/14/2024 12:32:15 01/14/2024 13:01:06 Toothache 39411218 K08.89 Infection of tooth 12116 8007 K04.7 Dental caries 56857938 K 02.9 Routine oral care explained in detail. [id number] Jeff Escobar MD [address] [address] 01/27/2024 14:29:57 01/27/2024 14:47:16 Idiopathic hypercalcemia 354293653 E83.52 resolved Vitamin B1 2 deficiency (non anemic) 51213585 E53.8 Microscopic hematuria 19 9841595 R31.29 Seasonal a llergic rhinitis 407049821 J30.2 Bipolar disorder 9390200 4 F31.9 Anxiety disorder F41.9 [id number] Jeff Escobar MD [address] [address] 04/13/2024 10:18:07 04/13/2024 10:48:02 Vitamin B12 deficiency (non anemic) 76833247 E53.8 Idiopathic hypercalcemia 364140532 E83.52 resolved Microscopic hematuria 19 5163512 R31.29 Seasonal a llergic rhinitis 206734556 J30.2 Bipolar disorder 7118995 4 F31.9 Anxiety disorder 2150588 06 F41.9 Chronic low back pain 27 0779844 M54.50 Irritable bowel syndrome 46788123 K58.9 Mixed anxi ety and depressive disorder 720599167 F41.8 Smoker 03247793 F17.200 Dental caries 97992078 K 02.9 Routine oral care explained in detail. Hyperlipid emia screening 285558550 Z13.220 Screening mammography 24 862687 Z12.31 [id number] Jeff Escobar MD [address] [address] 04/18/2024 09:57:51 04/18/2024 10:38:14 [id number] Jeff Escobar MD [address] [address] 04/28/2024 10:26:09 04/28/2024 10:57:12 Chronic low back pain 384083139 M54.50 Vitamin B1 2 deficiency (non anemic) 61307861 E53.8 Resolved Idiopathic hypercalcemia 902804264 E83.52 resolved Microscopic hematuria 19 9647828 R31.29 resolved Seasonal a llergic rhinitis 297958470 J30.2 Bipolar disorder 7646184 4 F31.9 Anxiety disorder 8284837 06 F41.9 Irritable bowel syndrome 11309112 K58.9 Mixed anxi ety and depressive disorder 455702783 F41.8 Smoker 60456441 F17.200 Dental caries 18826966 K 02.9 [id number] Jeff Escobar MD [address] [address] 1 06/15/2024 17:23:06 06/15/2024 17:55:31 Umbilical pain 38454431 R10.33 Gastroesop hageal reflux disease without esophagitis 789528030 K21.9 Abdominal pain 33486014 R10.9 [id number] Jeff Escobar MD [address] [address] 06/29/2024 16:11:07 06/29/2024 16:53:24 Increased stress 38448881 Z73.3 Generalize d anxiety disorder 20963473 F41.1 Bipolar disorder 5554321 4 F31.9 Depressive disorder 3548 9007 F32.A [id number] Jeff Escobar MD [address] [address] 08/29/2024 09:53:39 08/29/2024 10:37:55 Idiopathic hypercalcemia 610172400 E83.52 resolved Vitamin B1 2 deficiency (non anemic) 18150751 E53.8 Resolved Microscopic hematuria 19 2882333 R31.29 resolved Chronic low back pain 27 8318091 M54.50 Seasonal a llergic rhinitis 362511526 J30.2 Bipolar disorder 0199994 4 F31.9 Irritable bowel syndrome 07415707 K58.9 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 Health Concerns Section Related Observation LastModified by Organization Detai ls LastModified Time None Recorded Concern Status LastModified by Organization Details LastModified Time None Recorded Advance Directives Directive N: Payers Encounter Date Sequence Insurance Name Policy Number Policy Patel Covered Member ID Patel Member ID Guarantor Name 04/28/2024 2 [place] Cristiane Ivan [id number] Cristiane Ivan 04/28/2024 1 [place] Crist[place] Ivan [id number] Cristiane Ivan 06/15/2024 2 [place] Cristiane Ivan [id number] Cristiane Ivan 06/15/2024 1 [place] Ivan [id number] Cristiane Marzena 06/29/2024 2 [place] Cristiane Ivan [id number] Cristiane Ivan 06/29/2024 1 [place] Ivan [id number] Cristiane Marzena 08/29/2024 2 [place] Cristiane Ivan [id number] Cristiane Batistaitzer 08/29/2024 1 [place] Crist[place] Ivan [id number] Cristiane Marzena 10/21/2024 2 [place] [facility] PUBLIC AID Cristiane Ivan [id number] Cristiane Batistaitzer 10/21/2024 1 [place] Cristiane Ivan [id number] Cristiane Ivan Notes Date Note Type Note Provider Name and Address Organization Details Recorded Time 04/28/2024 text/html Pt is here for f /u on her annual labs and cxr. Doing overall well. Denies any problem with meds. Denies any new concerns. Pt is f/u with Uro for her microscopic hematuria and got testing done and it all came back good. Still smoking ++ and doesn't want to try anything else for it.Pt is f/u with Psych for her chronic mood problems and is on meds by them. Denies any mood swings/SI/HI.Pt is f/u with Pain doctor at [facility] for her chronic back pain and is getting epidural shots every 3-4 months and is on pain meds by them. Jeff Escobar MD [address] [place] [address], [place], [address], [place] [facility] [employer] [facility] 04/28/2024 10:56:20 06/15/2024 text/html ACV: C/o periumbilical area pain for last few weeks, on/off. Pt denies any BM changes. Good po intake, no v/c/d/blood in stool/fever/chills. Denies any chance of . Pt has this happened in 10/10 and I did work up and it was all good. So pt was started on Famotidine and she got better after few weeks. So she stopped it. No other concern. Jeff Escobar MD [address], [address], [place], [address], [facility] 06/15/2024 17:55:14 06/29/2024 text/html ACV: C/o increased stress and anxiety for last few weeks. Pt denies any SI/HI. Pt sees Psych at [facility] for her mood problems and is on meds by them. Pt is not able to see them until 2 weeks. Pt lives with her daughter and has few family members in different towns. No friends/partner. Pt is worried if something happens to her, what will happen to her daughter. Denies any chest pain/sob/sweating/n /v/d in the office. Jeff Escobar MD [address], [facility] [address], [place], [address], [facility] 06/29/2024 16:42:44 08/29/2024 text/html Pt is here for f /u on her meds and chronic conditions. Doing overall well. Denies any problem with meds. Denies any new concerns. Pt is f/u with Uro for her microscopic hematuria and got testing done and it all came back good. Still smoking ++ and doesn't want to try anything else for it.Pt is f/u with Psych for her chronic mood problems and is on meds by them. Denies any mood swings/SI/HI.Pt is f/u with Pain doctor at [facility] for her chronic back pain and is getting epidural shots every 3-4 months and is on pain meds by them. Jeff Escobar MD [address], [facility] [address], [place], [address], [facility] 08/29/2024 10:25:52 10/21/2024 text/html Cristiane Ivan is a 39 year old female patient here today with right sided pain. Pt states she has had pain in the right kidney since yesterday morning. Does take daily Rarden 5/325 mg but this is not effective in controlling this pain.Declines dysuria, frequency, urgency Upon further investigation, pain is in right hip. No numbness or tingling present. Blood present in urine in all UAs since 2022, would like to retest urine when asymptomatic AYDEN Carrero [address], [place] [address], [place], [address], [facility] 10/21/2024 11:00:10 OBGyn Episode No OBEpisode recorded.
--- OUTSIDE RECORDS SUMMARY | 2024-12-21 09:51 | XMS_ITS | Referral Summary ---
Author Organization [facility] Address [address] [place] [address] Care Team Providers Care Machine Turner Name Role Phone Unknown, Notinfile Primary Care Provider Unavail able Allergies No known active allergies Medications buPROPion XL (WELLBUTRIN XL) 300 mg 24 hr tablet Take 1 tablet (300 mg total) by mouth every morning Active diclofenac DR (VOLTAREN) 75 mg EC tablet Take 1 tablet (75 mg total) by mouth 2 (two) times a day as needed for pain 01/21/2022 Active HYDROcodone-dewayne taminophen (NORCO) 5-325 mg per tablet Take 1 tablet by mouth every 8 (eight) hours as needed for pain 01/26/2024 Active OLANZapine (ZyPREXA) 20 mg tablet Take 1 tablet (20 mg total) by mouth nightly 01/21/2022 Active tiZANidine (ZANAFLEX) 2 mg tablet Take 1 tablet (2 mg total) by mouth nightly as needed for muscle spasms 01/26/2024 Active Social History Tobacco Use Types Packs/Day Years Used Date Smoking Tobacco: Never Assessed Personal Safety Answer Date Recorded Have you ever been in or are you currently in a harmful physical or emotional relationship or is someone making you feel afraid or unsafe? Denies 02/04/2024 Comments No Sex and Gender Information Value Date Recorded Sex Assigned at Not on file Legal Sex Female 8:55 PM [employer] Gender Identity Not on file Sexual Orientation Not on file Last Filed Vital Signs Vital Sign Reading Time Taken Comments Blood Pressure 119/75 02/04/2024 2:44 PM CDT Pulse 82 02/04/2024 2:44 PM CDT Temperature 37.5 C (99.5 F) 02/04/2024 12:12 PM CDT Respiratory Rate 16 02/04/2024 2:44 PM CDT Oxygen Saturation 98% 02/04/2024 2:44 PM CDT Inhaled Oxygen Concentration - - Weight 60.3 kg (132 lb 15 oz) 02/04/2024 12:12 P M CDT Height 170.2 cm (5' 7) 10/11/2016 10:59 AM CDT Body Mass Index 20.82 10/11/2016 10:59 AM CDT Plan of Treatment Not on file Insurance [facility] MEDICARE Care Teams Machine Turner Relationship Specialty Start Date End Date Unknown, Notinfile PCP - General 02/04/24
--- OUTSIDE RECORDS SUMMARY | 2024-12-21 09:51 | XMS_ITS | Data Portability ---
Author Organization [facility] [facility] , [facility] Address [address] [place] [address] Assessment No assessment recorded. Plan of Treatment Reminders Order Date Submit Date Provider Last Modified By Organization Details Last Modified Time Details Appointments None recorded. Lab CT + NG DNA, PCR, unspecified specimen 2023 024 [employer] [facility] Edward, [address] [place], [address], 4 09:21:24 HPV E6+E7 mRNA, qualitative PCR, cervix 2023 024 [employer], [address] [place], [address], 4 07:58:58 pap, LB 2023 024 [facility], [address] [facility], [place], [address], 4 14:33:04 Referral None recorded. Procedures None recorded. Surgeries None recorded. Imaging MAMMO, screening, digital, bilateral 2023 024 [email or web address] Not available 4 15:12:10 Medication Orders medroxyprog esterone 150 mg/mL intramuscul ar suspension 2023 025 [id number], [address] [facility], [place], [place], [id number], 5 11:04:21 Patient TargetsNo targets recorded. Patient InstructionsNo instructions recorded. Reason for Referral None Reported. Results Created Date Observation Date Name Description Value Unit Range Abnormal Flag Note LastModifiedBy Organization Detail LastModifiedTime 02/18/20 24 02/18/2024 CT/NG CT/NG Merged to [id number] Not Available [facility] [place] [address] [place], [address], 02/18/2024 09:21:24 02/17/20 24 02/18/2024 CT/NG chlamydia trachomatis CT neg negati ve normal This repor t is inten ded for us in clini jeffrey monit oring and manag ement of patie nts. It is not inten ded for use in medic al-le gal appli catio n. Not Available [facility] [address] [place], [address], 02/19/2024 07:58:58 02/17/20 24 02/18/2024 CT/NG neisseria gonorrhoeae GC neg negati ve normal This repor t is inten ded for us in clini jeffrey monit oring and manag ement of patie nts. It is not inten ded for use in medic al-le gal appli catio n. Not Available [facility] [address] [place], [address], 02/19/2024 07:58:58 02/17/20 24 02/18/2024 HPV HIGH RISK HPV high risk Negati ve negati ve normal The HPV High Risk assay is inten ded for use as co-te sting with cytol ogy and not as a subst itute for regul ar cervi jeffrey cytol ogy scree daniel. This assay is not inten ded for use as a scree daniel devic e for women under age 30 with cherise l cervi jeffrey cytol ogy. Not Available [facility] [address] [place], [address], 02/19/2024 07:58:59 02/17/20 24 02/22/2024 THINP REP TIS PAP clinical information: normal None given Not Available [facility] [address] [place], [address], 02/22/2024 14:33:04 02/17/20 24 02/22/2024 THINP REP TIS PAP LMP: normal NONE GIVEN Not Available [address], [address], 02/22/2024 14:33:04 02/17/20 24 02/22/2024 THINP REP TIS PAP prev. Pap: normal NONE GIVEN Not Available [address], [address], 02/22/2024 14:33:04 02/17/20 24 02/22/2024 THINP REP TIS PAP prev. BX: normal NONE GIVEN Not Available [address], [address], 02/22/2024 14:33:04 02/17/20 24 02/22/2024 THINP REP TIS PAP source: normal Cervi x Not Available [address], [address], 02/22/2024 14:33:04 02/17/20 24 02/22/2024 THINP REP TIS PAP statement of adequacy: normal Satis facto ry for evalu ation . Endoc ervic al/tr ansfo rmati on zone compo nent prese nt. Age and/o r menst rual statu s not provi ded Not Available [address], [address], 02/22/2024 14:33:04 02/17/20 24 02/22/2024 THINP REP TIS PAP interpretati on/result: normal Cytol ogy Resul ts: Negat yelena for intra epith elial lesio n or malshani garrett . Not Available [address], [address], 02/22/2024 14:33:04 02/17/20 24 02/22/2024 THINP REP TIS PAP comment: normal This Pap test has been evalu ated with karena gallego techn ology . Not Available [facility] [address] [place], [address], 02/22/2024 14:33:04 02/17/20 24 02/22/2024 THINP REP TIS PAP cytotechnolo gist: normal BURTON, CT( CP) CT Scree daniel locat ion: [id number] [place] [address] Not Available [facility] [address] [address] [place], [address], 02/22/2024 14:33:04 02/17/2002/22/2024 THINP REP TIS PAP review cytotechnolo gist: normal YAYO, CT( CP) CT scree daniel locat ion: [facility] [address] [address] [place] [address] Not Available [facility] [address] [address] [place], [address], 02/22/2024 14:33:04 02/17/20 24 02/22/2024 THINP REP TIS PAP comment EXPLA NATOR Y NOTE: The Pap is a scree daniel test for cervi jeffrey cance r. It is not a diagn ostic test and is subje ct to false negat yelena and false posit yelena resul ts. It is most relia ble when a satis facto ry sampl e, regul issa obtai franchesca, is submi tted with relev ant clini jeffrey findi ngs and histo ry, and when the Pap resul t is evalu ated along with histo hayden and curre nt clini jeffrey infor matio n. Not Available [facility] [address] [place], [address], 02/22/2024 14:33:04 Result Notes None recorded. Problems Name Problem SNOMED Code Status Onset Date Resolution Date Notes Provider Name and Address Organization Details Recorded Time IUD check 911777247 Completed 201706/07/2018 Intraute rine contrace ptive device (IUD) follow up; Location : None Severity : Moderate Progress : Stable Added By: Monique Aviles Add to Current Problems : YES ProblemS tatus: Resolve Not Available [facility] 1 03:31:27 Contrace ptive sheath status 374977522 Completed 201706/07/2018 Encounte r for routine checking of intraute rine contrace ptive device; Progress : Stable Added By: Monique Aviles Add to Current Problems : NO ProblemS tatus: Resolve Not Available [facility] 2 14:10:11 Cyst of ovary 11140495 Completed 201705/28/2020 Unspecif ied ovarian cysts; Progress : Stable Added By: Ana Parham Add to Current Problems : NO ProblemS tatus: Resolve Not Available [facility] 2 14:10:15 Clinical finding Active 2018 Encounte r for surveill ance of injectab le contrace ptive; Severity : Moderate Progress : Stable Added By: Christal Roa Add to Current Problems : YES ProblemS tatus: Current Not Available [facility] 1 01:52:34 Low grade squamous intraepi thelial lesion on cervical Papanico laou smear 67420008419 105 Active 2018 Low grade squamous intraepi thelial lesion on cytologi c smear of cervix (LGSIL); Severity : Moderate Progress : Stable Added By: Chanell Russell Add to Current Problems : YES ProblemS tatus: Current Not Available [facility] 1 03:31:28 Finding of pattern of menstrua l cycle Completed 201805/28/2020 Other specifie d irregula r menstrua tion; Progress : Stable Added By: Tamara Kim Add to Current Problems : NO ProblemS tatus: Resolve Not Available [facility] 2 14:10:11 Follicul ar cyst of ovary 9475567 Completed 201701/30/2020 Ovarian cyst; Progress : Stable Added By: Ana Parham Add to Current Problems : NO ProblemS tatus: Resolve Ovarian cyst; Location : None Progress : Stable Added By: Ana Parham Add to Current Problems : YES ProblemS tatus: Current Not Available [facility] 2 14:10:14 Sampling of vagina for Papanico laou smear Completed 201806/26/2020 Encounte r for gynecolo gical examinat ion (general ) (routine ) without abnormal findings ; Severity : Moderate Progress : Stable Added By: Hoa Soto Add to Current Problems : NO ProblemS tatus: Resolve Not Available [facility] 1 03:31:30 Clinical finding Completed 201806/26/2020 Encounte r for initial prescrip tion of injectab le contrace ptive; Progress : Stable Added By: Ana Parham Add to Current Problems : NO ProblemS tatus: Resolve Not Available [facility] 2 14:10:13 Pelvic and perineal pain 067605631 Completed 201805/28/2020 Pelvic and perineal pain; Progress : Stable Added By: Tamara Kim Add to Current Problems : NO ProblemS tatus: Resolve Not Available [facility] 2 14:10:11 Sampling of vagina for Papanico laou smear Active 2020 Encounte r for gynecolo gical examinat ion (general ) (routine ) without abnormal findings ; Progress : Stable Added By: Shayla Aguila Add to Current Problems : YES ProblemS tatus: Current Not Available [facility] 2 14:10:12 Screenin g for malignan t neoplasm of cervix Active 2020 Encounte r for screenin g for malignan t neoplasm of cervix; Progress : Stable Added By: Shayla Aguila Add to Current Problems : YES ProblemS tatus: Current Not Available [facility] 2 14:10:14 Removal of intraute rine device Completed 201806/26/2020 Encounte r for removal of intraute rine contrace ptive device; Progress : Stable Added By: Ana Parham Add to Current Problems : NO ProblemS tatus: Resolve Not Available [facility] 2 14:10:15 Increase d frequenc y of urinatio n 219534203 Active 2022 Akhil Davis, [facility] [address] [place], [address] , [place] [facility] 3 14:24:47 Cervicov aginal cytology specimen unsatisf actorthompson 674898661 Completed 201805/28/2020 Unsatisf actorthompson cytologi c smear of cervix; Progress : Stable Added By: Tamara Kim Add to Current Problems : NO ProblemS tatus: Resolve Not Available [facility] 2 14:10:14 Breast lump 38769492 Completed 201705/28/2020 Breast mass; Progress : Stable Added By: Ana Parham Add to Current Problems : NO ProblemS tatus: Resolve Unspecif ied lump in breast; Progress : Stable Added By: Ana Parham Add to Current Problems : NO ProblemS tatus: Resolve Breast mass; Location : None Progress : Stable Added By: Ana Parham Add to Current Problems : YES ProblemS tatus: Current Not Available [facility] 2 14:10:14 Problem Notes None recorded. Procedures Surgical History Date Name Laterality Status Provider Name and Address Organization Details Recorded Time 05/31/20 24 Depo Provera Injection completed Hoa Soto [facility] 05/31/2024 12:04:38 03/08/20 24 Depo Provera Injection completed Hoa Soto [place] [facility] 03/08/2024 11:09:22 02/17/20 24 Date of Last Pap Smear completed Jeremias [place] [facility] 11/16/2024 10:49:54 12/18/19 24 Depo Provera Injection completed Hoa Soto [place] [facility] 12/18/2023 15:11:55 09/28/19 24 Depo Provera Injection completed Hoa Soto [facility] 09/28/2023 15:11:42 07/02/20 23 Depo Provera Injection completed Hoa Soto [facility] 07/02/2023 09:59:11 04/08/20 23 Depo Provera Injection completed Hoa Soto [place] [facility] 04/08/2023 15:40:07 01/16/20 23 Depo Provera Injection completed Hoa [place]oto [place] [facility] 01/15/2023 16:18:28 10/30/19 23 Depo Provera Injection completed [facility]a [facility] 10/29/2022 12:30:51 08/12/19 23 Depo Provera Injection completed Naldo Guan [facility] IV 08/12/2022 13:13:52 05/27/20 22 Depo Provera Injection completed Wanda Hilliard [facility] [place] [facility] IV 05/27/2022 12:37:28 03/03/20 22 Depo Provera Injection completed Hoa Soto [facility] [place] [facility] IV 03/03/2022 10:14:47 12/07/19 22 Depo Provera Injection completed Hoa Brittany [facility] [place] [facility] IV 12/06/2021 13:57:26 09/13/19 22 Depo Provera Injection completed Bonny Garciaboogienawaf [facility] [place] [facility] IV 09/13/2021 16:38:12 06/17/20 21 Depo Provera Injection completed Hoa Leiva [facility] [place] [facility] IV 06/17/2021 17:42:17 cryosurgery completed Matilde Hall [facility] [place] [facility] IV 01/22/2022 23:51:47 Imaging Results None recorded. Procedure Notes None recorded. Medical Equipment None Reported. Allergies No known drug allergies Medications Name Sig Start Date Stop Date Status Note LastModified by Organization Details LastModified Time amoxicill in 500 mg capsule 01/23 completed Not Available Not Available Not Available tizanidin e 2 mg tablet TAKE 1 TABLET BY MOUTH DAILY AT BEDTIME NEEDED active Not Available Not Available No t Available clindamyc in HCl 300 mg capsule TAKE 1 CAPSULE BY MOUTH THREE TIMES DAILY FOR 7 DAYS DIRECTED 11/16 completed Not Available Not Available Not Available trazodone 50 mg tablet TAKE 1 TABLET BY MOUTH EVERY DAY AT BEDTIME 08/12 completed Not Available Not Available Not Available cetirizin e 10 mg tablet TAKE 1 TABLET BY MOUTH EVERY DAY DIRECTED FOR 90 DAYS 02/16 completed Not Available Not Available Not Available ibuprofen 800 mg tablet TAKE 1 TABLET BY MOUTH THREE TIMES DAILY WITH MEALS 08/12 completed Not Available Not Available Not Available Zyprexa 10 mg tablet 08/12 completed Zyprexa 10 mg oral tablet RxNorm: 570686 Allow Substitu tion: True Refill Denied: No Refill DateOccu rred: 12/02/19 19 Edited by: pancho frye([facility] ) on 04/12/20 Stopped by: pancho frye([facility] ) on Not Available Not Available Not Available hydrocodo ne 5 mg-acetam inophen 325 mg tablet TAKE 1 TABLET BY MOUTH EVERY 8 HOURS NEEDED active Not Available Not Available No t Available metronida zole 250 mg tablet TAKE 2 TABLETS BY MOUTH EVERY 8 HOURS FOR 5 DAYS 02/16 completed Not Available Not Available Not Available penicilli n V potassium 500 mg tablet TAKE 1 TABLET BY MOUTH THREE TIMES DAILY FOR 7 DAYS DIRECTED 02/16 completed Not Available Not Available Not Available ciproflox acin 500 mg tablet TAKE 1 TABLET BY MOUTH EVERY 12 HOURS FOR 5 DAYS DIRECTED 02/16 completed Not Available Not Available Not Available hydrocodo ne 10 mg-acetam inophen 325 mg tablet 08/12 completed Hydrocod one/Acet aminophe n Allow Substitu tion: True Refill Denied: No Refill DateOccu rred: 11/06/19 18 Edited by: pancho frye([facility] ) on 04/12/20 Stopped by: pancho frye([facility] ) on Not Available Not Available Not Available Nicotrol 10 mg inhalatio n cartridge INHALE 1 PUFF BY MOUTH EVERY 4 TO 6 HOURS DIRECTED 11/16 completed Not Available Not Available Not Available tramadol 50 mg tablet TAKE 1 TABLET BY MOUTH THREE TIMES DAILY NEEDED 08/12 completed Not Available Not Available Not Available amoxicill in 500 mg tablet TAKE 1 TABLET BY MOUTH THREE TIMES DAILY UNTIL ALL TAKEN 11/16 completed Not Available Not Available Not Available famotidin e 20 mg tablet TAKE 1 TABLET BY MOUTH EVERY 12 HOURS DIRECTED 11/16 completed Not Available Not Available Not Available estradiol 1 mg tablet TAKE 1 TABLET BY MOUTH DAILY TO HELP PREVENT ABNORMAL BLEEDING OR BONE LOSS. 02/16 completed Not Available Not Available Not Available doxycycli ne monohydra te 100 mg capsule 1 capsule( or tab) po bid for 7 days and may substitu te any form of doxycycl ine and take this 3-4 days after iud insertio n 06/26 completed doxycycl ine monohydr ate 100 mg oral capsule RxNorm: 3315363 Allow Substitu tion: True Refill Denied: No Edited by: mauro (Mery Parsons) on 06/26/20 Stopped by: mauro ([facility]ery Parsons) on 06/26/20 Not Available Not Available Not Available hydrocodo ne 7.5 mg-acetam inophen 325 mg tablet 02/11 completed Hydrocod one/Acet aminophe n Allow Substitu tion: True Refill Denied: No Refill DateOccu rred: 11/06/19 18 Edited by: pancho frye([facility] ) on 04/12/20 19 Stopped by: pancho frye([facility] ) on Not Available Not Available Not Available oseltamiv ir 75 mg capsule TAKE 1 CAPSULE BY MOUTH TWICE DAILY FOR 5 DAYS 02/16 completed Not Available Not Available Not Available buspirone 10 mg tablet TAKE 1 TABLET BY MOUTH EVERY 12 HOURS NEEDED active Not Available Not Available No t Available Aldara 5 % topical cream packet Place 1/2 packet on tip of tampon, bring tampon down inside of campos before placing vaginal, insert to level of cervix, remove in the morning, ONCE weekly, if after 2 wks no nausea then can use a whole packet, PLEASE make colpo appt if medicati on is not covered or IF YOU ARE experien cing any pain vaginal 04/18 completed Aldara 5 % Topical Cream in Packet RxNorm: 017930 Allow Substitu tion: True Refill Denied: No Edited by: Shayla Hutchison ) on 04/18/20 Stopped by: celestino (Shayla Aguila ) on 04/18/20 Not Available Not Available Not Available diclofena c sodium 75 mg tablet,de layed release TAKE 1 TABLET BY MOUTH TWICE DAILY NEEDED active Not Available Not Available No t Available gabapenti n 100 mg capsule TAKE 1 CAPSULE BY MOUTH THREE TIMES DAILY 08/12 completed Not Available Not Available Not Available ibuprofen 600 mg tablet TAKE 1 TABLET BY MOUTH EVERY 8 HOURS FOR 10 DAYS NEEDED 02/16 completed Not Available Not Available Not Available levofloxa ora 750 mg tablet TAKE 1 TABLET BY MOUTH DAILY FOR 5 DAYS 02/16 completed Not Available Not Available Not Available methylpre dnisolone 4 mg tablets in a dose pack FOLLOW PACKAGE DIRECTIO NS 11/16 completed Not Available Not Available Not Available medroxypr ogesteron e 150 mg/mL intramusc ular suspensio n ADMINIST ER 1 ML IN THE MUSCLE EVERY 3 MONTHS 11/16 completed Not Available Not Available Not Available dicyclomi ne 10 mg capsule TAKE 1 CAPSULE BY MOUTH EVERY 8 HOURS NEEDED 02/16 completed Not Available Not Available Not Available olanzapin e 20 mg tablet TAKE 1 TABLET BY MOUTH DAILY AT BEDTIME active Not Available Not Available No t Available amoxicill in 875 mg-potass ium clavulana te 125 mg tablet TAKE 1 TABLET BY MOUTH EVERY 12 HOURS FOR 10 DAYS 01/23 completed Not Available Not Available Not Available hydroxyzi ne pamoate 25 mg capsule TAKE 1 CAPSULE BY MOUTH EVERY 8 HOURS NEEDED 02/16 completed Not Available Not Available Not Available medroxypr ogesteron e 150 mg/mL intramusc ular syringe inject 1 millilit er (150 mg) by intramus cular route every 3 months 02/11 completed Not Available Not Available Not Available Mononessa (28) 0.25 mg-35 mcg tablet Take 1 tablet(s ) by mouth daily as directed . 08/25 completed MonoNess a 35mcg/0. 25mg Tablet RxNorm: 492200 Allow Substitu tion: True Refill Denied: No Not Available Not Available Not Available bupropion HCl XL 300 mg 24 hr tablet, extended release TAKE 1 TABLET BY MOUTH DAILY active Not Available Not Available No t Available Mirena 2017 12/30 completed Mirena 52mg Intraute rine System RxNorm: 504591 Allow Substitu tion: True Refill Denied: No Refill DateOccu rred: 12/10/19 Not Available Not Available Not Available Wellbutri n XL 300mg PO daily 2017 active Wellbutr in XL RxNorm: 26264 Allow Substitu tion: True Refill Denied: No Refill DateOccu rred: 11/06/19 18 Edited by: Willa Arce ) on 04/18/20 21 Stopped by: marlene( Willa Tompkins ) on Not Available Not Available Not Available hydrocodo ne 2.5 mg-acetam inophen 325 mg tablet 08/12 completed Hydrocod one/Acet aminophe n Allow Substitu tion: True Refill Denied: No Refill DateOccu rred: 11/06/19 18 Edited by: pancho frye([facility] ) on 04/12/20 19 Stopped by: pancho frye([facility] Ana marroquin ) on Not Available Not Available Not Available Vitals Date Recorded Body height Body mass index (BMI) Body weight Body temperature Systolic blood pressure Diastolic blood pressure Provider Name and Address Organization Details Last Updated DateTime 5 170.18 cm 21.6 kg/m2 68657.3 1 g 97.1 [degF] 108 mm[Hg] 66 mm[Hg] Jeremias [place] [facility] 5 11:02:38 Date Recorded Body weight Body temperature Systolic blood pressure Diastolic blood pressure Provider Name and Address Organization Details Last Updated DateTime 02/17/2024 69683.47 g 97.8 [degF] 104 mm[Hg] 68 mm[Hg] Nichole Romero [facility] 4 14:10:53 Social History Question Answer Notes LastModified by Organizat ion Details LastModified Time Tobacco Smoking Status Current Every Day Smoker Naldo suazo, [facility] 01/23/2022 16:00:51 Are You Blind Or Do You Have Difficulty Seeing? No Information not available 01/23/2022 Are You Deaf Or Do You Have Serious Difficulty Hearing? No Information not available 01/23/2022 What Type Of Diet Are You Following? REGULAR Information not available 01/23/2022 What Is Your Relationship Status? Single Information not available 01/23/2022 Are You Sexually Active? No Information not available 01/23/2022 At What Age Did You Start Smoking Tobacco? 17 [email or web address] Information not available 02/17/2024 How Much Tobacco Do You Smoke? 1 PPD Information not available 02/17/2024 How Many Years Have You Smoked Tobacco? 21 [email or web address] Information not available 02/17/2024 Sex: Unknown Functional Status Question Answer Note LastModified by Organizat ion Details LastModified Time Do you use any illicit or recreational drugs? No Information not available 01/23/2022 What is your level of alcohol consumption? Occasional Information not available 01/23/2022 Do you or have you ever used e-cigarettes or vape? Never used electronic cigarettes [email or web address] Information not available 02/17/2024 What is your exercise level? None Information not available 01/23/2022 Mental Status None recorded. Family History Relationship Description Onset Age of this Age Resolved Age Notes LastModified by Organization Details LastModified Time Father No current problems or disability [email or web address] Not available 12/2021 23:50:14 Mother No current problems or disability [email or web address] Not available 12/2021 23:50:14 Medical History Condition Response Bipolar Disorder Y Seizures/Epilepsy N History of Abnormal Pap N Gynecological History Statement/Question Response Date of Last Colonoscopy Date of last HPV 02/17/2024 Flow Light Most Recent Bone Density Frequency of Cycle (Q days) 28 Date of LMP 01/01/2016 HPV Vaccine N Date of Last Pap Smear 02/17/2024 Age at Menarche 14 Current Control Method None Most Recent Mammogram Obstetrics History GPAL:G 1 P 1 0 0 1 Type Value Full Term 1 Living 1 Total 1 Past Encounters Encounter ID Performer Location Encounter Start Date Encounter Closed Date Diagnosis/Indication Diagnosis SNOMED-CT Code Diagnosis ICD10 Code Diagnosis Note [id number] [facility] [place] [facility] [address] [place] [address] 06/17/2021 17:36:43 06/28/2021 13:16:53 [id number] PHILIPPE SEAY CNM [facility] [address] [place] [address] 09/13/2021 16:25:21 09/16/2021 13:26:29 [id number] [facility]AY, [facility] [address] [facility] [place] [address] 12/06/2021 13:31:31 12/06/2021 16:02:01 [id number] Willa handy, [facility] [address] [facility] [place] [address] 01/23/2022 15:42:12 01/23/2022 17:26:50 Screening for malignant neoplasm of cervix 385016122 Z12.4 [facility] 514143183 Z30.09 Gynecologi c examination 19235522 Z01.419 Screening mammography 24 805006 Z12.31 Venereal d isease screening 835406324 Z11.3 Dietary ma nagement surveillance 038527337 Z71.3 [id number] Willa hadny, [facility] [address] [facility] [place] [address] 03/03/2022 10:01:40 03/03/2022 10:31:21 Surveillance of depot contraception done 9474514898 9104 Z30.42 [id number] [facility] [address] [facility] [place] [address] 05/27/2022 12:16:31 05/27/2022 12:45:35 [id number] Mitzy Gagnon, [facility] [address] [place] [address] 08/12/2022 12:18:00 08/12/2022 13:34:34 Pain in pelvis 29355405 R10.2 pt reports intermitte nt pelvic pain that is sharp but short lived. Mostly at night when she is lying down and moving. Reviewed likely musculo-sk eletal origin but pt very concerned about cancer and would like US. PA sent. Surveillan ce of depot contraception done [id number] 9104 Z30.42 [id number] Letty Guerrero MD [facility] [address] [facility] [place] [address] 10/29/2022 10:54:09 10/30/2022 09:39:58 Surveillance of depot contraception done [id number] 9104 Z30.42 [id number] JUAN CARABALLO, MARY BABB [facility] [address] [place] [address] 01/15/2023 13:15:47 01/22/2023 15:51:44 Surveillance of depot contraception done [id number] 91 Z30.42 [id number] Akhil Smyth Susan, [facility] [address] [place] [address] 02/11/2023 13:24:50 02/11/2023 17:51:26 Gynecologic examination [id number] Z01.419 WWE completedP ap with HPV obtainedCB E nml ; discussed breast self-aware ness.Cardi ovascular health: discussed healthy diet and regular exercise.C ontracepti on - depo-prove ra. Doing well and wants to continue.B one health- recommend daily Ca++ with Vitamin D. Dexa- Screening for malignant neoplasm of cervix [id number] Z12.4 Cervical cancer screening is used to find abnormal changes in the cells of the cervix that could lead to cancer. Screening includes the Pap test and, for some women, testing for a virus called human papillomav irus (HPV). The main cause of cervical cancer is infection with HPV. Surveillan ce of contraception [id number] Z30.40 ACHES reviewed Depression screening 171 510436 Z13.31 Screen negative Increased frequency of urination 458160451 R35.0 Urine cx sent. Will call with results when availble. [id number] Chad Valentino MD [facility] [address] [place] [address] 04/08/2023 13:27:29 04/10/2023 10:55:31 Surveillance of depot contraception done [id number] [id number] [facility] [address] [place] [address] 07/02/2023 09:46:03 07/06/2023 10:29:05 Surveillance of depot contraception done [id number] 9104 Z30.42 [id number] Willa handy, CNM [facility] [address] [place] [address] 09/28/2023 15:05:17 09/28/2023 15:29:47 Surveillance of depot contraception done [id number] 9104 Z30.42 [id number] GEOVANY WU, DO [facility] [address] [place] [address] 12/18/2023 14:04:15 12/18/2023 17:11:01 Patient encounter status [id number] Z30.42 Additional diagnosis detail: Surveillan ce for Depo-Prove ra contracept ion [id number] Sheila Barajas, NP [facility] [address] [place] [address] 02/17/2024 13:29:21 02/18/2024 18:01:48 Gynecologic examination [id number] Z01.419 Pt educated on ACOG and ASCCP guidelines for breast, ovarian, and cervical cancer screenings . Exam WNL. Plan for F/U PRN or for next WWE. Screening for malignant neoplasm of cervix 285068162 Z12.4 ASCCP guidelines reviewed with pt. Pap collected and sent. Further POC pending lab result review. Pt states understand ing of POC. Screening for malignant neoplasm of breast 146839240 Z12.31 Pt educated on breast cancer screening guidelines , and discussed recommenda tion for scheduling imaging at hospital of her choice. Pt advised on self scheduling , and does not need order for imaging. Reviewed recommenda tion to have imaging done at same facility if possible as previous screenings . Pt states understand ing of POC. Depression screening 171 542188 Z13.31 PHQ9: 1. Pt educated on normal scoring, and discussed depression precaution s and when to notify HCP/go to ER.refer to intake screening Surveillan ce of contraception [id number] Z30.40 Pt educated on risks Vs benefits of use, reviewed ACHES symptoms and discussed d/c of blackbox warning. Pt also offered considerat ion for alterantiv e contracept yelena options. Pt initially stated interest in LNG-IUD use, but then retreated and stated wanted to hold off and continue with Depo Provera use. Importance of following dosing schedule as directed reinforced to pt, and on use of condoms or abstinence if dosing schedule is interrupte d. Pt advised no appt necessary to receive injection. Pt to bring Rx with her from pharmacy for administra tion. Pt encouraged to consider Ca+ and Vit D supplement ation with use. Refills sent. Plan to F/U PRN or at next WWE. [id number] AYDEN WHITTINGTON [facility] [address] [place] [address] 03/08/2024 10:53:08 03/10/2024 13:10:13 Surveillance of depot contraception [id number] Z30.42 [id number] JUAN CARABALLO [facility] [address] [place] [address] 05/31/2024 11:43:27 06/01/2024 12:59:56 Surveillance of depot contraception [id number] Z30.42 Health Concerns Section Related Observation LastModified by Organization Detai ls LastModified Time None Recorded Concern Status LastModified by Organization Details LastModified Time None Recorded Advance Directives Directive None Recorded Payers Insurance Date Sequence Insurance Name Policy Number Policy Campos Covered Member ID Campos Member ID Guarantor Name 11/16/2024 1 [place] Cristiane Ivan [id number] Cristiane Ivan 05/31/2024 3 [employer] - [employer] (MEDICARE REPLACEMENT/A DVANTAGE - HMO) Cristiane Ivan [id number] Cristiane Ivan 07/02/2021 1 [facility] (MEDICAID HMO) [id number] Cristiane Ivan [id number] Cristiane Ivan 07/02/2021 2 [place] Cristiane Ivan [id number] Cristiane Ivan 02/11/2023 1 [facility] - DUAL OPTIONS (MEDICARE - MEDICAID REPLACEMENT HMO) [id number] Cristiane Ivan [id number] Cristiane Ivan 11/16/2024 2 [place] [place] Cristiane Ivan [id number] Cristiane Lewis Marzena 12/01/2023 1 [place] Cristiane Ivan [id number] Cristiane Lewis Marzena 02/11/2023 1 [place] Cristiane Ivan [id number] Cristiane Ivan Notes Date Note Type Note Provider Name and Address Organization Details Recorded Time 02/17/2024 text/html Annual GYNReport ed bypatient.Urinary symptoms:No hematuria; No incontinence Vulva:No genital lesion Vagina:Normal vaginal discharge Breast:No breast pain; No breast lump; No nipple discharge Sexual complaints:No sexual complaints; No pain during intercourse; Normal libido Menopausal Symptoms:No menopausal symptoms; Normal vaginal lubrication Psychological symptoms:No depression; No anxiety; No PMDD Pt presents for annual well woman exam today. Pt states she is doing well. Pt reports having regular monthly cycles that are not heavy or painful. Pt has not had a period 7 yrs since her child was born(she is concern about not having a period). Pt is currently sexually active. Pt is currently using Depo Provera for contraception; last administration 12/18/23. Last Pap: ASCUS, HPV neg. Pt has a h/o abnormal paps, and had cryotherapy at age 23. Pt is not UTD on mammograms; last done in 2019 and WNL per pt. Pt has no personal or family history of cancer. Pt requests STD screening via culture, but declines serum testing. Pt does have PCP who she sees routinely for health promotion and screenings. Pt has no other concerns. [facility] [place] [address], [place], [address], [facility] [employer] 02/17/2024 22:45:05 OBGyn Episode Ob Episode Information Episode Created Date Number of Fetuses Patient Bloodtype Patient rh Status Prepregnancy Weight lbs Domestic Partner Domestic Partner Phone Father Name Pumping Supervisor Status 01/23/20 22 1 CLOSED Fetus Data First Name Last Name Admitted to NICU Weight (g) Sex Living Outcome Pediatric Complications Fetus ID Race Codes Race Delivery Type 3061.74 6 F Full Term [id number] [place] Calculation Initial [place] Date Initial Exam Date Initial Exam Provider Initial Ultrasound Date Last Menstrual Period Date Ultra Sound Weeks Gestation 0 Eighteen To Twenty Week [place] Update Ultra Sound Date Fundal Height At Umbil Quickening Date Ultra Sound Latest Weeks Gestation Final [place] Confirmed By Final [place] Confirmed Date Final [place] Date Ultra Sound Latest Days Gestation 0 0 Menstrual History Last Menstrual Date Menses Monthly On Bcp Conception Prior Menses Frequency Hcg Plus Date Menarche Onset Age Delivery Information Delivery Date Delivery Type Labor Anesthesia Weeks Gestation Incision Type Labor Labor Length Hrs Delivered By Post Complications Tubal Sterilization Discharge Date Comments Discharge Information Feeding Method Contraceptive Method Maternal HG B and HCT Levels
--- OUTSIDE RECORDS SUMMARY | 2024-12-21 09:52 | XMS_ITS | Clinical Summary ---
Author Organization [facility] Address [address] [place] [address] Care Team Providers Care Driver License Agent Name Role Phone Unknown, Notinfile Primary Care [...] on file Legal Sex Female 8:55 PM CLIENT CARE REPRESENTATIVE Gender Identity Not on file Sexual Orientation [...] 10/11/2016 10:59 AM CDT Plan of Treatment Health Maintenance Due Date Last Done Comments Breast Cancer Screening-Mammogram 1984 Cervical Cancer Screening 1984 Depression Screening 1984 Hepatitis C Screening 1984 DTaP/Tdap/Td Vaccine (1 - Tdap) 02/06/1995 Varicella Vaccines (1 of 2 - 13+ 2-dose series) 02/06/1997 Hepatitis B Screening 02/06/2002 Regular Well Visit/Exam 18-64 02/06/2002 Covid-19 Vaccine (3 - 2023-2 5 season) 2024 05/01/2021, 03/27/2021 Influenza Vaccine (Season Ended) 2025 06/28/2020 HPV Vaccines Aged Out No longer eligi ble based on patient's age to complete this topic Pneumococcal vaccine <65 Aged Out No longer eligible based on patient's age to complete this topic Insurance [facility] [employer] MEDICARE Care Teams Driver License Agent Relationship Specialty Start Date End Date Unknown, Notinfile PCP - General 02/04/24
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
--- OUTSIDE RECORDS SUMMARY | 2024-12-21 09:52 | XMS_ITS | Clinical Summary ---
Author Organization 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
== END 2024-12-21 09:41 | disposition home or self-care (01) ==
LOC: ANHIMG 09:42
PROVIDERS: PCP Family Medicine; Visit Provider Family Medicine
DX: Z12.31 Encounter for screening mammogram for malignant neoplasm of breast (principal); R92.8 Other abnormal and inconclusive findings on diagnostic imaging of breast
CPT/HCPCS: 77063; 77067

== ENCOUNTER 2025-03-07 10:40 | Outpatient (CLI) | payer MEDICARE, MEDICAID, SELFPAY ==
--- NOTE | ~2025-03-07 | MMUS_ITS ---
EXAMINATION: MM diagnostic [facility] RT [place], US breast RT limited HISTORY: Right breast asymmetry TECHNIQUE: Additional 3-D tomosynthesis images of the right breast were performed and synthetic 2-D images were generated. CAD analysis was submitted and interpreted. High resolution limited right breast ultrasound was performed. COMPARISON: 12/21/2024 BREAST PARENCHYMAL COMPOSITION:Dense: The breasts are heterogeneously dense, which may obscure small masses. FINDINGS: MAMMOGRAPHIC FINDINGS: There is a questionable persistent ovoid circumscribed mass in the inner right subareolar region measuring 11 mm. Questionable persistent vague ovoid density in the posterior right breast on MLO spot compression view. ULTRASOUND: At the right breast 7:00 position, 5 cm from nipple, there is a 1.9 x 1.7 x 0.6 cm circumscribed, wider than tall hypoechoic solid mass, most likely fibroadenoma. No distinct mass seen in the subareolar region. 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 No distinct sonographic correlate seen for the possible circumscribed mass in the inner right subareolar region. Six-month follow-up right breast mammography and sonography to reassess. BI-RADS category 3, probably benign findings. Reviewed, dictated and finalized at location . 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 No distinct sonographic correlate seen for the possible circumscribed mass in the inner right subareolar region. Six-month follow-up right breast mammography and sonography to reassess. BI-RADS category 3, probably benign findings.
--- OUTSIDE RECORDS SUMMARY | 2025-03-07 11:14 | XMS_ITS | Clinical Summary ---
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 IDPA MEDICARE Care Teams Welder Railcar Mechanic Relationship Specialty Start Date End Date Unknown, Notinfile PCP - General 02/04/24
--- OUTSIDE RECORDS SUMMARY | 2025-03-07 11:14 | XMS_ITS | Clinical Summary ---
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
== END 2025-03-07 10:41 | disposition home or self-care (01) ==
LOC: ANHFOHIMG 10:41
PROVIDERS: PCP Family Medicine; Visit Provider Family Medicine
DX: R92.8 Other abnormal and inconclusive findings on diagnostic imaging of breast (principal)
CPT/HCPCS: 76642; 77061; 77065; G0279

== ENCOUNTER 2025-06-30 10:10 | Outpatient (CLI) | payer MEDICARE, MEDICAID, SELFPAY ==
--- NOTE | ~2025-06-30 | XR_ITS ---
Examination: XR chest 2V Clinical History: wheeze, LOOKING FOR POSSIBLE PNEUMONIA Comparison: 04/21/2024 Technique: PA and Lateral Findings: Cardiomediastinal silhouette normal size and configuration. Lungs clear. Mild hyperinflation suggesting COPD. No acute bony abnormality. IMPRESSION: 1. No acute cardiopulmonary findings. Reviewed, dictated and finalized at location R. I LINE CLAIMS ADJUSTER
== END 2025-06-30 10:11 | disposition home or self-care (01) ==
PROVIDERS: PCP Family Medicine
DX: R06.2 Wheezing (principal)
CPT/HCPCS: 71046

== ENCOUNTER 2025-07-07 09:35 | Emergency (ER) | payer MEDICARE, MEDICAID, SELFPAY ==
[2025-07-07 09:50] VITALS: BP 132/65; PULSE 91; RESP 16; TEMP 36.6; O2SAT 100
--- NOTE | 2025-07-07 09:58 | ECG_ITS ---
Test Date: 2025-07-07 10:08:53 Measurements Intervals [place] Rate: 87 P: 66 WY: 115 QRS: 58 QRSD: 94 T: 39 QT: 367 QTc: 443 Interpretive Statements SINUS RHYTHM WITH SHORT [place]Y INTERVAL POSSIBLE LEFT ATRIAL ENLARGEMENT BASELINE ARTIFACT- I, III, AVR, AVL BORDERLINE ECG No previous ECG available for comparison Electronically Signed On 07-07-2025 10:26:40 HEAD STILL OPERATOR by Luis Marte D.O.
--- NOTE | 2025-07-07 11:11 | ED.URI ---
HPI - URI/Sore Throat General Chief Complaint: Upper Respiratory Infection Stated Complaint: Chest Pressure Time Seen by Provider: 07/07/25 10:40 Source: patient and RN notes reviewed Mode of arrival: ambulatory Limitations: no limitations History of Present Illness HPI Narrative: 40-year-old female presents Express Care complaining of chest pressure that started yesterday. Patient over the last 2 weeks she has been dealing with a cough and upper respiratory symptoms, she had a chest x-ray done week ago and lab work by her primary for her symptoms and her chest x-ray was normal. Patient was given a Medrol Dosepak, she said her symptoms never got better on and yesterday she developed chest pressure. Patient denies any chest pressure with exertion, left arm pain, jaw pain, nausea, vomiting, difficulty breathing. Patient also reports she has a mucopurulent productive cough. Patient reports she does smoke cigarettes. Patient denies any history of high blood pressure, high cholesterol, diabetes, or any other risk factors. Patient denies any family history of heart disease. Patient has a history of bipolar disorder. Related Data Home Medications ?Medication ?Instructions ?Recorded ?Confirmed ?Last Taken ?Type bupropion HCl 300 mg 24 hr tablet, 300 mg PO QHS 11/15/21 09/12/22 09/11/22 21:00 History extended release olanzapine 20 mg tablet 20 mg PO QHS 11/15/21 09/12/22 09/11/22 21:00 History hydrocodone 5 mg-acetaminophen 325 1 tablet PO Q8H 09/12/22 09/12/22 Unknown History mg tablet buspirone 10 mg tablet mg 07/07/25 Unknown History diclofenac sodium 75 mg mg PO 07/07/25 Unknown History tablet,delayed release famotidine 20 mg tablet mg 07/07/25 Unknown History methylprednisolone 4 mg tablets in mg 07/07/25 Unknown History a dose pack tizanidine 2 mg tablet mg 07/07/25 Unknown History Allergies Allergy/AdvReac Type Severity Reaction Status Date / Time No Known Allergies Allergy Verified 07/07/25 09:52 Review of Systems Review of Systems: CONSTITUTIONAL: Denies fever, chills, or sweats. EYES: Denies visual changes, redness, or discharge. ENT: Denies rhinorrhea, sore throat, or otalgia. Positive For congestion. CARDIOVASCULAR: Positive for chest pressure. Negative for palpitations, dizziness or lightheadedness, jaw pain, left arm pain, or edema. RESPIRATORY: Positive for cough. Negative for wheezing or Dyspnea. GASTROINTESTINAL: Denies abdominal pain, nausea, vomiting, or diarrhea. GENITOURINARY: Denies dysuria or hematuria. SKIN: Denies rash or itching. MUSCULOSKELETAL: Denies back pain, joint pain, or myalgia. NEUROLOGIC: Denies headache, numbness, or weakness. PSYCHIATRIC: Denies anxiety or depression. All other systems reviewed are negative, except as documented in HPI. [facility] Past Medical History Medical History Tobacco abuse Bipolar disorder Anxiety Allergies Surgical History Surgical History No history of previous surgery Family History Family History Mother Family history of malignant neoplasm Lung cancer Grandparent Cervical cancer Social History Social History Social History: Surrogate medical decision maker: Karen Robledolbert, sister. Code status: Full code. Smoking packs per day: 1 Smoking cigarettes per day: 20.0 Years smoked: 18 Smoking pack-years: 18.00 Smoking status: Current every day smoker Tobacco type: cigarettes Alcohol intake: current Drinks per week: 0 Substance use: never Lack of Transportation: No Lack of Food: Never True Current Housing: I Have Housing Concerned About Future Housing: No Difficulty Paying Gas/Electric Bills: No Difficulty Paying for Meds: No Currently Unemployed: No Education: High School Diploma/GED Difficulty w/ Childcare or Family Care: No Additional living arrangements comments: Lives in [place] with 5-year-old daughter. 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 Spiritual care concerns: No Comments At the time of my signature, I reviewed and agree with the nursing past medical, surgical, social, and family history. There is no relevant family history pertinent to the patient complaint. Exam Narrative: GENERAL: This is a well-nourished, well-developed adult, in no apparent distress. They are non ill-appearing, nontoxic appearing. HEAD: normocephalic, atraumatic. EYES: Sclera clear/white. Conjunctiva normal. Vision is grossly intact. Extraocular movements intact EARS: External ears normal, auditory canals clear and without drainage, TMs normal without perforation. Hearing grossly intact. NOSE: External nose normal with no obvious nasal discharge, nasal turbinates without redness, no rhinorrhea. THROAT: Mucous membranes moist, posterior pharynx erythematous. PND present. Uvula midline. NECK: Neck supple, non-tender without lymphadenopathy, masses or thyromegaly. CARDIOVASCULAR: Regular rate and rhythm without murmurs, gallops, or rubs. RESPIRATORY: Diminished to lower lobes. Breath sounds equal bilaterally. No wheezes, rales, or rhonchi. SKIN: warm, Dry, intact with no suspicious lesions or rash, good texture and turgor. NEURO: awake, alert, and oriented to person, place and time. There were no obvious focal neurologic abnormalities. EXTREMITIES: No joint tenderness, effusion, or edema noted. BACK: Nontender without deformity. Course Course Level of Care: Express Care Visit Vital Signs Vital signs: Vital Signs Temperature 97.8 F 07/07/25 09:50 Pulse Rate 91 07/07/25 09:50 Respiratory Rate 16 07/07/25 09:50 Blood Pressure 132/65 07/07/25 09:50 Pulse Oximetry 100 07/07/25 09:50 Temperature 97.8 F 07/07/25 09:50 Pulse Rate 91 07/07/25 09:50 Respiratory Rate 16 07/07/25 09:50 Blood Pressure 132/65 07/07/25 09:50 Pulse Oximetry 100 07/07/25 09:50 [facility] Narrative Medical decision making narrative: EKG is sinus rhythm nonspecific T-wave abnormality, no ST elevation or depression, no reciprocal changes. EKG is borderline. Patient's chest pressure does not get worse with exertion, she says it gets better with movement. Patient has no risk factors other than smoking, no family history. [place] heart score 1. Patient is appropriate for outpatient follow-up for CAD workup. Patient's lung sounds are diminished bilateral lower lobes, she continues to have mucopurulent cough, offered to get a chest x-ray to reassess for pneumonia, patient declined, given her symptoms will go ahead and treat for bacterial infection, with Augmentin and azithromycin. Will give her albuterol inhaler as needed for wheezing or shortness of breath. Patient just finished a Medrol Dosepak. Discussed supportive care. Discussed physical exam findings. Advised supportive measures and signs/symptoms to go to the ER. Pt is appropriate for outpt treatment and f/u. Differential Diagnosis Differential Diagnosis: Differential diagnostic considerations for upper respiratory infection include upper respiratory infection, croup, otitis media, sinusitis, viral infection, bronchitis, influenza, pharyngitis, strep, uvulitis, ACS, angina, STEMI. ECG Data EKG #1: Attestation: I personally reviewed and interpreted this ECG as follows: ECG completion date: 07/07/25 ECG completion time: 10:08 Prior ECG tracings: not available for review normal rate, sinus rhythm, no ectopy, no ST changes, normal QRS, normal QT and other (non specific t wave abnormalities ) Critical Care Time Critical Care Time Critical Care Time: No Discharge Plan Discharge Clinical Impression: Bronchitis Patient Disposition: Home Condition: Stable Instructions: Antibiotic Form, Acute Bronchitis (ED) Additional Instructions: Take the azithromycin and Augmentin as directed. Use the inhaler as needed for shortness of breath or wheezing. Tylenol or ibuprofen as needed for pain or fevers. Follow instructions on the bottle. Symptomatic treatment includes: rest, fluids, and increase humidity of the air at home. Your EKG is a sinus rhythm today. Follow up with your primary care provider in 2-3 days. Go to the ER for worsening symptoms, worsening chest pain, chest pain with exertion, jaw pain, left arm pain, nausea, vomiting, difficulty breathing, or any serious concerns Patient Language: Ghanaian Prescriptions: New azithromycin 250 mg tablet See Rx Instructions .ROUTE .COMPLEX Qty: 6 0RF Rx Instructions: For 250 mg dose pack: take 500 mg today (day 1), then 250 mg for 4 days (days 2-5) albuterol sulfate [Ventolin HFA] 90 mcg/actuation HFA aerosol inhaler 2 puff inhalation QID PRN (Reason: shortness of breath or wheezing) Qty: 8.5 0RF amoxicillin-pot clavulanate 875-125 mg tablet 1 tablet PO Q12H 5 Days Qty: 10 0RF No Action tizanidine 2 mg tablet famotidine 20 mg tablet buspirone 10 mg tablet diclofenac sodium 75 mg tablet,delayed release (DR/EC) PO methylprednisolone 4 mg tablets,dose pack olanzapine 20 mg tablet 20 mg PO QHS bupropion HCl 300 mg tablet extended release 24 hr 300 mg PO QHS hydrocodone-acetaminophen 5-325 mg tablet 1 tablet PO Q8H Follow-up/Referrals: Shawn,MD Jeff [Primary Care Provider, Unknown] Time of Disposition: 10:54
== END 2025-07-07 10:57 | disposition home or self-care (01) ==
PROVIDERS: PCP Family Medicine
DX: J40 Bronchitis, not specified as acute or chronic (principal); F17.210 Nicotine dependence, cigarettes, uncomplicated; F41.9 Anxiety disorder, unspecified
CPT/HCPCS: 93005; 99213; G0463